=== PATIENT | male | born 1950 | race Caucasian/White ===

== ENCOUNTER 2017-09-30 10:04 | Inpatient (IN) | payer OTHER ==
[~2017-09-30 10:04] MED LIST: METHADONE 80 MG, METHADONE (DETOX) 30 MG PO SCH
[2017-09-30 10:55] VITALS: BMI 22.6
--- NOTE | 2017-09-30 11:18 | HP ---
CIWA Score - CIWA Score Nausea/Vomitin-Mild Nausea/No Vomiting Muscle Tremors: 4-Moderate,w/Arms Extend Anxiety: 4-Mod. Anxious/Guarded Agitation: 1-Slight > Activity Paroxysmal Sweats: 1-Minimal Palms Moist Orientation: 2-Disoriented Date<2 days Tacttile Disturbances: 0-None Auditory Disturbances: 1-Very Mild Visual Disturbances: 1-Very Mild Sensitivity Headache: 1-Very Mild CIWA-Ar Total Score: 16 Admission ROS S - HPI Chief Complaint: I want detox from the xanax, I'm tired Allergies/Adverse Reactions: Allergies Allergy/AdvReac Type Severity Reaction Status Date / Time No Known Allergies Allergy Verified 09/30/17 11:05 History of Present Illness: 67 yo gentleman here for detox from xanax - patient is on methadone program 110mg. He is being prescribed Klonopin by psych but admits to taking more than prescribed and then also buys xanax. No seizures but does have blackouts. Exam Limitations: Clinical Condition - Ebola screening Have you traveled outside of the country in the last 21 days: No (N) Have you had contact with anyone from an Ebola affected area: No Have you been sick,other than usual withdrawal symptoms: No Do you have a fever: No - Review of Systems Constitutional: Loss of Appetite, Changes in sleep, Other (slowed speech) EENT: reports: Blurred Vision, Dental Problems (no dentures), Difficulty Swallowing (sometimes) Respiratory: reports: No Symptoms reported Cardiac: reports: No Symptoms Reported GI: reports: Nausea, Poor Fluid Intake, Indigestion : reports: Urgency Musculoskeletal: reports: Back Pain Integumentary: reports: Dryness Neuro: reports: Headache, Tremors Endocrine: reports: No Symptoms Reported Hematology: reports: No Symptoms Reported Psychiatric: reports: Judgement Intact, Mood/Affect Appropiate, Anxious, Depressed (denies feeling suicidal) Other Systems: Reviewed and Negative Patient History - Patient Medical History Hx Anemia: No Hx Asthma: No Hx Chronic Obstructive Pulmonary Disease (COPD): No Hx Cancer: No Hx Cardiac Disorders: No Hx Congestive Heart Failure: No Hx Hypertension: No Hx Hypercholesterolemia: No Hx Pacemaker: No HX Cerebrovascular Accident: No Hx Seizures: No Hx Dementia: No Hx Diabetes: No Hx Gastrointestinal Disorders: No Hx Liver Disease: No Hx Genitourinary Disorders: No Hx Sexually Transmitted Disorders: No Hx Renal Disease (ESRD): Yes (incontinence) Hx Thyroid Disease: No Hx Human Immunodeficiency Virus (HIV): No Hx Hepatitis C: Yes (completed treatment 2016) Hx Depression: Yes (with PTSD) Hx Suicide Attempt: No Hx Bipolar Disorder: No Hx Schizophrenia: No ('I don't know') - Patient Surgical History Past Surgical History: Yes Hx Orthopedic Surgery: Yes (right leg tibial fracture repair 1967) - PPD History Previous Implant?: Yes Documented Results: Negative w/o proof Implanted On Prior R Admission?: No PPD to be Administered?: Yes - Reproductive History Patient is a Female of Child Bearing Age (11 -55 yrs old): No (male) - Smoking Cessation Smoking history: Current every day smoker Have you smoked in the past 12 months: Yes Aproximately how many cigarettes per day: 20 Initiated information on smoking cessation: Yes 'Breaking Loose' booklet given: 09/30/17 (give on floor) - Substance & Tx. History Hx Alcohol Use: No Hx Substance Use: Yes Substance Use Type: Tranquilizers Hx Substance Use Treatment: Yes (detox, methadone program) - Substances Abused Alprazolam (Xanax) Route: Oral Frequency: 3-6 times per week Amount used: 4mg Age of first use: 35 Date of Last Use: 09/29/17 Family Disease History - Family Disease History Family Disease History: Other: Father (, killed himself), Mother ( , murdered, used cocaine), Brother (doesn't know), Sister (two - one overdosed), Son (one murdered at age 26) Admission Physical Exam S - Vital Signs Vital Signs: Vital Signs - 24 hr 09/30/17 10:53 Temperature 97.8 F Pulse Rate 78 Respiratory 18 Rate Blood Pressure 146/68 - Physical General Appearance: Yes: Nourished, Appropriately Dressed, Disheveled, Moderate Distress, Thin, Anxious HEENTM: Yes: Hearing grossly Normal, Normocephalic, Normal Voice, Pharynx Normal (whitish coating on tongue), Thrush Respiratory: Yes: Normal Breath Sounds, No Respiratory Distress Neck: Yes: No masses,lesions,Nodules, Supple Breast: Yes: Breast Exam Deferred Cardiology: Yes: Regular Rhythm, Regular Rate Genitourinary: Yes: Incontinient Back: Yes: Normal Inspection Musculoskeletal: Yes: full range of Motion, Gait Steady, Back pain Extremities: Yes: Normal Inspection, Normal Range of Motion, Non-Tender Neurological: Yes: Alert, Normal Mood/Affect, Normal Response Integumentary: Yes: Normal Color, Warm Lymphatic: Yes: Within Normal Limits - Diagnostic (1) Sedative, hypnotic or anxiolytic dependence with withdrawal, uncomplicated Current Visit: Yes Status: Chronic (2) Methadone maintenance therapy patient Current Visit: Yes Status: Chronic (3) Nicotine dependence Current Visit: Yes Status: Chronic Qualifiers: Nicotine product type: cigarettes Substance use status: uncomplicated Qualified Code(s): F17.210 - Nicotine dependence, cigarettes, uncomplicated (4) Dysphagia Current Visit: Yes Status: Acute Qualifiers: Dysphagia type: oropharyngeal phase Qualified Code(s): R13.12 - Dysphagia, oropharyngeal phase (5) Oral arsenio Current Visit: Yes Status: Chronic Cleared for Admission [facility] - Detox or Rehab [facility] Level of Care: Medically Managed Detox Regimen/Protocol: Valium S Breath Alcohol Content Breath Alcohol Content: 0 Urine Drug Screen - Results Drug Screen Negative: No Urine Drug Screen Results: BZO-Benzodiazepines, MTD-Methadone
[2017-09-30] MEDS ORDERED: MAGNESIUM HYDROX 2400MG/30ML ORAL SUSPENSION 30 ML CUP PO PRN (11:31)
[2017-09-30] MEDS ORDERED: MAGNESIUM CITRATE 300 ML BOTTLE PO PRN (11:31)
[2017-09-30] MEDS ORDERED: ACETAMINOPHEN 325 MG TABLET (FP) PO PRN (11:31)
[2017-09-30] MEDS ORDERED: LOPERAMIDE HCL 2 MG CAPSULE PO PRN (11:31)
[2017-09-30] MEDS ORDERED: hydrOXYzine PAMOATE 50 MG CAPSULE (FP) PO PRN (11:31)
[2017-09-30] MEDS ORDERED: IBUPROFEN 400 MG TABLET (FP) PO PRN (11:31)
[2017-09-30] MEDS ORDERED: MAG HYDROX/AL HYDROX/SIMETH 30 ML UNIT-DOSE CUP PO PRN (11:31)
[2017-09-30] MEDS ORDERED: MENTHOL/PHENOL 1 EACH UD MM PRN (11:31)
[2017-09-30] MEDS ORDERED: P-EPHED 60MG/TRIPROLIDI 2.5MG TABLET PO PRN (11:31)
[2017-09-30] MEDS ORDERED: diazePAM 5 MG TABLET PO PRN (11:31)
[2017-09-30] MEDS ORDERED: guaiFENesin/D-METHORPHAN HB 10 ML UNIT-DOSE CUPS PO PRN (11:31)
[2017-09-30] MEDS: NICOTINE 21 MG/24 HOURS TOPICAL PATCH TD SCH (13:55)
[2017-09-30] MEDS: diazePAM 5 MG TABLET PO SCH ×2 (13:56→22:03)
[2017-09-30] MEDS ORDERED: diazePAM 5 MG TABLET PO ONE (14:00)
[2017-09-30] MEDS: CLOTRIMAZOLE 10 MG TROCHE (FP) PO SCH ×3 (14:50→22:03)
[2017-09-30 16:26] LABS: URINE APPEARANCE CLEAR; URINE BILIRUBIN NEGATIVE (NEGATIVE); URINE BLOOD NEGATIVE (NEGATIVE); URINE COLOR LTYELLOW; URINE GLUCOSE (UA) NEGATIVE (NEGATIVE); URINE KETONE NEGATIVE (NEGATIVE); URINE LEUK ESTERASE TRACE (NEGATIVE); URINE NITRITE NEGATIVE (NEGATIVE); URINE PROTEIN NEGATIVE (NEGATIVE)
[2017-09-30 16:55] LABS: URINE HYALINE CAST 2 /lpf
[2017-09-30] MEDS ORDERED: PERMETHRIN 5% TOPICAL CREAM 60 GM TUBE TP ONE (21:55)
[2017-09-30] MEDS: THIAMINE HCL 100 MG TABLET (FP) PO SCH (22:03)
--- NOTE | 2017-09-30 22:16 | PN ---
[facility] Progress Note Note: found the head lice on the hair occipital area,permethrin 5% topical cream ordered,patient will be in the room by himself nursing field supervisor seed production present on the unit.precaution taken
[2017-10-01] MEDS ORDERED: METHADONE HCL 40 MG DISPERSABLE TABLET ONE (04:43)
[2017-10-01] MEDS ORDERED: METHADONE HCL 10 MG TABLET ONE (04:44)
[2017-10-01] MEDS: diazePAM 5 MG TABLET PO SCH ×3 (06:37→23:04)
[2017-10-01] MEDS: CLOTRIMAZOLE 10 MG TROCHE (FP) PO SCH ×5 (06:37→23:34)
[2017-10-01] MEDS: METHADONE 80 MG, METHADONE 30 MG PO SCH (06:37)
[2017-10-01] MEDS ORDERED: METHADONE HCL 10 MG TABLET PO SCH (10:00)
[2017-10-01] MEDS: PRENATAL VITAMINS W/ FOLIC ACID TABLET (FP) PO SCH (10:10)
[2017-10-01] MEDS: NICOTINE 21 MG/24 HOURS TOPICAL PATCH TD SCH (10:11)
[2017-10-01 10:54] LABS: HEMATOCRIT 28.6 % (35.4-49); HEMOGLOBIN 8.6 GM/dL (11.7-16.9); MCH 20.9 pg (25.7-33.7); MEAN CELL VOLUME 69.6 fl (80-96); MEAN PLT VOLUME 8.4 fl (7.5-11.1); PLATELET COUNT 58 K/MM3 (134-434); RBC 4.11 M/mm3 (4.00-5.60); WHITE BLOOD COUNT 2.1 K/mm3 (4.0-10.0)
[2017-10-01 11:09] LABS: ALBUMIN 3.2 g/dl (3.4-5.0); ANION GAP 5 (8-16); BLOOD UREA NITROGEN 16 mg/dL (7-18); CALCIUM 8.5 mg/dL (8.5-10.1); CHLORIDE 101 mmol/L (98-107); CO2 33 mmol/L (21-32); GLUCOSE,RANDOM 113 mg/dL (74-106); POTASSIUM 4.4 mmol/L (3.5-5.1); SODIUM 139 mmol/L (136-145)
[2017-10-01 11:13] LABS: ALK PHOS 113 U/L (45-117); BILIRUBIN,TOTAL 0.4 mg/dL (0.2-1.0); CREATININE 0.8 mg/dL (0.7-1.3); SGOT/AST 19 U/L (15-37); SGPT/ALT 19 U/L (12-78); TOT PROT 7.8 g/dl (6.4-8.2)
--- NOTE | 2017-10-01 11:19 | EKG ---
Test Reason : Blood Pressure : / mmHG Vent. Rate : 070 BPM Atrial Rate : 070 BPM P-R Int : 172 ms QRS Dur : 088 ms QT Int : 432 ms P-R-T Axes : 054 038 056 degrees QTc Int : 466 ms NORMAL SINUS RHYTHM NORMAL ECG NO PREVIOUS ECGS AVAILABLE Confirmed by IRA HERNÁNDEZ MD ([id number]) on 10/01/2017 11:19:17 AM Referred By: Confirmed By:IRA HERNÁNDEZ MD
[2017-10-01 11:54] LABS: SICKLE CELL SCREEN NEGATIVE (NEGATIVE)
--- NOTE | 2017-10-01 15:35 | CONSULT ---
[facility] Psychiatric Consult - Data Date of interview: 10/01/17 Admission source: Self-referred Identifying data: Mr Pack is a 67 years old male, unemployed on SSI/SSD, homeless seeking detox treatment for xanax. Substance Abuse History: Reports history of xanax use. He started using xanax at age 35, consumes 4 mg 3-6 times daily. Last used on 09/29/17 Medical History: Significant for urinary incontinence. Patient is on methadone 110 mg/day. Smokes cigarettes 1ppd Psychiatric History: Reports history of treatment for anxiety since his was murdered in the 70's. Reports being diagnosed with PTSD and has atended several outpatient treatment. Told handbook writer that he now receives psychiatric outpatient services at a clinic in [place], [place] and he is prescribed Klonopin 1 mg po BID. According to pharmacy claims, he refilled script for Paxil 20 mg #30 & Klonopin 1 #60 on 09/08/17. He was asked about taking Paxil and did not knowit was prescribed to him. At present, reports feling depresed, anxious and sleeping poorly Physical/Sexual Abuse/Trauma History: Denies history of emotional. physical or sexual abuse. Claims that he did not witness his murder but was severely affected by that loss Additional Comment: Reports history of one previous arrests and charged with a felony. Mental Status Exam - Mental Status Exam Alert and Oriented to: Time, Place, Person Cognitive Function: Fair Patient Appearance: Well Groomed Mood: Depressed, Anxious Affect: Appropriate Patient Behavior: Cooperative Speech Pattern: Clear Voice Loudness: Normal Thought Process: Intact, Goal Oriented Thought Disorder: Not Present Hallucinations: Denies Suicidal Ideation: Denies Homicidal Ideation: Denies Insight/Judgement: Poor Sleep: Poorly Gait/Station: Normal Psychiatric Findings - Problem List ([place] 1, 2,3) (1) Substance-induced anxiety disorder Current Visit: Yes Status: Acute (2) PTSD (post-traumatic stress disorder) Current Visit: Yes Status: Chronic (3) Sedative, hypnotic or anxiolytic dependence with withdrawal, uncomplicated Current Visit: Yes Status: Acute (4) Opioid dependence on agonist therapy Current Visit: Yes Status: Chronic (5) Nicotine dependence Current Visit: Yes Status: Chronic Qualifiers: Nicotine product type: cigarettes Substance use status: uncomplicated Qualified Code(s): F17.210 - Nicotine dependence, cigarettes, uncomplicated - Initial Treatment Plan Initial Treatment Plan: 1) Start Ambien 10 mg po HS prn for insomnia. 2) Continue inpatient detoxification
[2017-10-01] MEDS ORDERED: ZOLPIDEM TARTRATE 10 MG TABLET (PARK CARE ONLY) PO PRN (15:42)
--- NOTE | 2017-10-01 15:59 | PN ---
[facility] CIWA - CIWA Score Nausea/Vomitin-No Nausea/No Vomiting Muscle Tremors: 4-Moderate,w/Arms Extend Anxiety: 4-Mod. Anxious/Guarded Agitation: 4-Moderately Restless Paroxysmal Sweats: 1-Minimal Palms Moist Orientation: 0-Oriented Tacttile Disturbances: 0-None Auditory Disturbances: 0-None Visual Disturbances: 0-None Headache: 0-None Present CIWA-Ar Total Score: 13 [facility] Progress Note (SOAP) Subjective: anxiety tremor sweat restlessness Objective: 10/01/17 16:00 Vital Signs Temperature 97.9 F 10/01/17 14:43 Pulse Rate 78 10/01/17 14:43 Respiratory Rate 18 10/01/17 14:43 Blood Pressure 110/74 10/01/17 14:43 O2 Sat by Pulse Oximetry (%) Laboratory Last Values WBC 2.1 K/mm3 (4.0-10.0) L 10/01/17 08:00 RBC 4.11 M/mm3 (4.00-5.60) 10/01/17 08:00 Hgb 8.6 GM/dL (11.7-16.9) L 10/01/17 08:00 Hct 28.6 % (35.4-49) L 10/01/17 08:00 MCV 69.6 fl (80-96) L 10/01/17 08:00 MCH 20.9 pg (25.7-33.7) L 10/01/17 08:00 MCHC 30.0 g/dl (32.0-35.9) L 10/01/17 08:00 RDW 20.0 % (11.9-15.9) H 10/01/17 08:00 Plt Count 58 K/MM3 (134-434) L 10/01/17 08:00 MPV 8.4 fl (7.5-11.1) 10/01/17 08:00 Hypersegmented Neuts Cancelled 10/01/17 08:00 Hypochromia Cancelled 10/01/17 08:00 Toxic Granulation Cancelled 10/01/17 08:00 Dohle Bodies Cancelled 10/01/17 08:00 Polychromasia Cancelled 10/01/17 08:00 Poikilocytosis Cancelled 10/01/17 08:00 Basophilic Stippling Cancelled 10/01/17 08:00 Anisocytosis Cancelled 10/01/17 08:00 Microcytosis Cancelled 10/01/17 08:00 Macrocytosis Cancelled 10/01/17 08:00 Spherocytes Cancelled 10/01/17 08:00 Siderocytes Cancelled 10/01/17 08:00 Sickle Cells Cancelled 10/01/17 08:00 Target Cells Cancelled 10/01/17 08:00 Tear Drop Cells Cancelled 10/01/17 08:00 Ovalocytes Cancelled 10/01/17 08:00 Stomatocytes Cancelled 10/01/17 08:00 Helmet Cells Cancelled 10/01/17 08:00 [place] Bodies Cancelled 10/01/17 08:00 [place] Rings Cancelled 10/01/17 08:00 Srini Cells Cancelled 10/01/17 08:00 Acanthocytes (Spur) Cancelled 10/01/17 08:00 Rouleaux Cancelled 10/01/17 08:00 Fragmented RBCs Cancelled 10/01/17 08:00 Schistocytes Cancelled 10/01/17 08:00 Morphology Comment Cancelled 10/01/17 08:00 Sickle Cell Screen Negative (NEGATIVE) 10/01/17 08:00 Sodium 139 mmol/L (136-145) 10/01/17 08:00 Potassium 4.4 mmol/L (3.5-5.1) 10/01/17 08:00 Chloride 101 mmol/L (98-107) 10/01/17 08:00 Carbon Dioxide 33 mmol/L (21-32) H 10/01/17 08:00 Anion Gap 5 (8-16) L 10/01/17 08:00 BUN 16 mg/dL (7-18) 10/01/17 08:00 Creatinine 0.8 mg/dL (0.7-1.3) 10/01/17 08:00 Creat Clearance w eGFR > 60 (>60) 10/01/17 08:00 Random Glucose 113 mg/dL (74-106) H 10/01/17 08:00 Calcium 8.5 mg/dL (8.5-10.1) 10/01/17 08:00 Total Bilirubin 0.4 mg/dL (0.2-1.0) 10/01/17 08:00 AST 19 U/L (15-37) 10/01/17 08:00 ALT 19 U/L (12-78) 10/01/17 08:00 Alkaline Phosphatase 113 U/L (45-117) 10/01/17 08:00 Total Protein 7.8 g/dl (6.4-8.2) 10/01/17 08:00 Albumin 3.2 g/dl (3.4-5.0) L 10/01/17 08:00 Urine Color Ltyellow 09/30/17 16:00 Urine Appearance Clear 09/30/17 16:00 Urine pH 8.0 (5.0-8.0) 09/30/17 16:00 Ur Specific [place] 1.014 (1.001-1.035) 09/30/17 16:00 Urine Protein Negative (NEGATIVE) 09/30/17 16:00 Urine Glucose (UA) Negative (NEGATIVE) 09/30/17 16:00 Urine Ketones Negative (NEGATIVE) 09/30/17 16:00 Urine Blood Negative (NEGATIVE) 09/30/17 16:00 Urine Nitrite Negative (NEGATIVE) 09/30/17 16:00 Urine Bilirubin Negative (NEGATIVE) 09/30/17 16:00 Urine Urobilinogen 2.0 mg/dL (0.2-1.0) 09/30/17 16:00 Ur Leukocyte Esterase Trace (NEGATIVE) 09/30/17 16:00 Urine WBC (Auto) <1 /hpf (3-5) 09/30/17 16:00 Urine RBC (Auto) 6 /hpf (0-3) 09/30/17 16:00 Hyaline Casts 2 /lpf 09/30/17 16:00 RPR Titer Nonreactive (NONREACTIVE) 10/01/17 08:00 lab noted Assessment: 10/01/17 16:00 withdrawal sx Plan: continue detox
[2017-10-01] MEDS: THIAMINE HCL 100 MG TABLET (FP) PO SCH (23:04)
[2017-10-02] MEDS ORDERED: METHADONE HCL 10 MG TABLET ONE (04:53)
[2017-10-02] MEDS ORDERED: METHADONE HCL 40 MG DISPERSABLE TABLET ONE (04:53)
[2017-10-02] MEDS: METHADONE 80 MG, METHADONE 30 MG PO SCH (05:44)
[2017-10-02] MEDS: CLOTRIMAZOLE 10 MG TROCHE (FP) PO SCH ×5 (05:46→22:05)
--- NOTE | 2017-10-02 10:45 | PN ---
<YeimiTanesha - Last Filed: 10/02/17 10:40> [facility] CIWA - CIWA Score Nausea/Vomitin-Mild Nausea/No Vomiting Muscle Tremors: 3 Anxiety: 3 Agitation: 3 Paroxysmal Sweats: 3 Orientation: 1-Uncertain about Date Tacttile Disturbances: 0-None Auditory Disturbances: 1-Very Mild Visual Disturbances: 0-None Headache: 0-None Present CIWA-Ar Total Score: 15 [facility] Progress Note (SOAP) Subjective: shakes sweats sleep disturbance hearing voices Objective: 10/02/17 10:42 [address] ambulating some shakes Denies SI/HI Vital Signs Temperature 98.9 F 10/02/17 06:00 Pulse Rate 66 10/02/17 06:00 Respiratory Rate 18 10/02/17 06:00 Blood Pressure 132/61 10/02/17 06:00 O2 Sat by Pulse Oximetry (%) Laboratory Last Values WBC 2.1 K/mm3 (4.0-10.0) L 10/01/17 08:00 RBC 4.11 M/mm3 (4.00-5.60) 10/01/17 08:00 Hgb 8.6 GM/dL (11.7-16.9) L 10/01/17 08:00 Hct 28.6 % (35.4-49) L 10/01/17 08:00 MCV 69.6 fl (80-96) L 10/01/17 08:00 MCH 20.9 pg (25.7-33.7) L 10/01/17 08:00 MCHC 30.0 g/dl (32.0-35.9) L 10/01/17 08:00 RDW 20.0 % (11.9-15.9) H 10/01/17 08:00 Plt Count 58 K/MM3 (134-434) L 10/01/17 08:00 MPV 8.4 fl (7.5-11.1) 10/01/17 08:00 Hypersegmented Neuts Cancelled 10/01/17 08:00 Hypochromia Cancelled 10/01/17 08:00 Toxic Granulation Cancelled 10/01/17 08:00 Dohle Bodies Cancelled 10/01/17 08:00 Polychromasia Cancelled 10/01/17 08:00 Poikilocytosis Cancelled 10/01/17 08:00 Basophilic Stippling Cancelled 10/01/17 08:00 Anisocytosis Cancelled 10/01/17 08:00 Microcytosis Cancelled 10/01/17 08:00 Macrocytosis Cancelled 10/01/17 08:00 Spherocytes Cancelled 10/01/17 08:00 Siderocytes Cancelled 10/01/17 08:00 Sickle Cells Cancelled 10/01/17 08:00 Target Cells Cancelled 10/01/17 08:00 Tear Drop Cells Cancelled 10/01/17 08:00 Ovalocytes Cancelled 10/01/17 08:00 Stomatocytes Cancelled 10/01/17 08:00 Helmet Cells Cancelled 10/01/17 08:00 [place] Bodies Cancelled 10/01/17 08:00 [place] Rings Cancelled 10/01/17 08:00 Srini Cells Cancelled 10/01/17 08:00 Acanthocytes (Spur) Cancelled 10/01/17 08:00 Rouleaux Cancelled 10/01/17 08:00 Fragmented RBCs Cancelled 10/01/17 08:00 Schistocytes Cancelled 10/01/17 08:00 Morphology Comment Cancelled 10/01/17 08:00 Sickle Cell Screen Negative (NEGATIVE) 10/01/17 08:00 Sodium 139 mmol/L (136-145) 10/01/17 08:00 Potassium 4.4 mmol/L (3.5-5.1) 10/01/17 08:00 Chloride 101 mmol/L (98-107) 10/01/17 08:00 Carbon Dioxide 33 mmol/L (21-32) H 10/01/17 08:00 Anion Gap 5 (8-16) L 10/01/17 08:00 BUN 16 mg/dL (7-18) 10/01/17 08:00 Creatinine 0.8 mg/dL (0.7-1.3) 10/01/17 08:00 Creat Clearance w eGFR > 60 (>60) 10/01/17 08:00 Random Glucose 113 mg/dL (74-106) H 10/01/17 08:00 Calcium 8.5 mg/dL (8.5-10.1) 10/01/17 08:00 Total Bilirubin 0.4 mg/dL (0.2-1.0) 10/01/17 08:00 AST 19 U/L (15-37) 10/01/17 08:00 ALT 19 U/L (12-78) 10/01/17 08:00 Alkaline Phosphatase 113 U/L (45-117) 10/01/17 08:00 Total Protein 7.8 g/dl (6.4-8.2) 10/01/17 08:00 Albumin 3.2 g/dl (3.4-5.0) L 10/01/17 08:00 Urine Color Ltyellow 09/30/17 16:00 Urine Appearance Clear 09/30/17 16:00 Urine pH 8.0 (5.0-8.0) 09/30/17 16:00 Ur Specific [place] 1.014 (1.001-1.035) 09/30/17 16:00 Urine Protein Negative (NEGATIVE) 09/30/17 16:00 Urine Glucose (UA) Negative (NEGATIVE) 09/30/17 16:00 Urine Ketones Negative (NEGATIVE) 09/30/17 16:00 Urine Blood Negative (NEGATIVE) 09/30/17 16:00 Urine Nitrite Negative (NEGATIVE) 09/30/17 16:00 Urine Bilirubin Negative (NEGATIVE) 09/30/17 16:00 Urine Urobilinogen 2.0 mg/dL (0.2-1.0) 09/30/17 16:00 Ur Leukocyte Esterase Trace (NEGATIVE) 09/30/17 16:00 Urine WBC (Auto) <1 /hpf (3-5) 09/30/17 16:00 Urine RBC (Auto) 6 /hpf (0-3) 09/30/17 16:00 Hyaline Casts 2 /lpf 09/30/17 16:00 RPR Titer Nonreactive (NONREACTIVE) 10/01/17 08:00 labs noted Assessment: 10/02/17 10:43 withdrawal sx Anemia Plan: continue detox Fe supplements <Kishore Ledesma - Last Filed: 10/02/17 12:50> B[facility] Progress Note (SOAP) Assessment: 10/02/17 12:49 withdrawal sx - cont detox, fluids, encourage ambulation, prn medications for tremors, nursing advised voices - psych eval
[2017-10-02] MEDS: PRENATAL VITAMINS W/ FOLIC ACID TABLET (FP) PO SCH (11:06)
[2017-10-02] MEDS: diazePAM 5 MG TABLET PO SCH ×2 (11:06→22:05)
[2017-10-02] MEDS: NICOTINE 21 MG/24 HOURS TOPICAL PATCH TD SCH (11:07)
[2017-10-02] MEDS: FERROUS SO4 325 MG TABLET (FP) PO SCH ×2 (12:30→18:47)
[2017-10-02] MEDS: THIAMINE HCL 100 MG TABLET (FP) PO SCH (22:06)
[2017-10-03] MEDS ORDERED: METHADONE HCL 40 MG DISPERSABLE TABLET ONE (03:43)
[2017-10-03] MEDS ORDERED: METHADONE HCL 10 MG TABLET ONE (03:43)
[2017-10-03] MEDS: METHADONE 80 MG, METHADONE 30 MG PO SCH (05:39)
[2017-10-03] MEDS: CLOTRIMAZOLE 10 MG TROCHE (FP) PO SCH ×5 (05:41→22:35)
[2017-10-03] MEDS: FERROUS SO4 325 MG TABLET (FP) PO SCH ×3 (08:59→17:38)
[2017-10-03 09:46] LABS: BASO % 0.3 % (0-2.0); EOS % 1.7 % (0-4.5); HEMATOCRIT 26.4 % (35.4-49); HEMOGLOBIN 7.9 GM/dL (11.7-16.9); LYMPH % 19.6 % (8-40); MCH 20.9 pg (25.7-33.7); MEAN CELL VOLUME 69.8 fl (80-96); MEAN PLT VOLUME 8.3 fl (7.5-11.1); MONO % 10.1 % (3.8-10.2); NEUT % 68.3 % (42.8-82.8); PLATELET COUNT 57 K/MM3 (134-434); RBC 3.78 M/mm3 (4.00-5.60); RDW 19.5 % (11.9-15.9); WHITE BLOOD COUNT 2.1 K/mm3 (4.0-10.0)
[2017-10-03] MEDS: diazePAM 5 MG TABLET PO SCH ×2 (10:11→22:35)
[2017-10-03] MEDS: PRENATAL VITAMINS W/ FOLIC ACID TABLET (FP) PO SCH (10:11)
[2017-10-03] MEDS: NICOTINE 21 MG/24 HOURS TOPICAL PATCH TD SCH (10:12)
--- NOTE | 2017-10-03 11:56 | PN ---
S Progress Note (SOAP) Subjective: alert oriented x 2 tolerates food and fluid well no sweat less tremor calm Objective: 10/03/17 11:55 Vital Signs Temperature 96.6 F L 10/03/17 10:26 Pulse Rate 82 10/03/17 10:26 Respiratory Rate 18 10/03/17 10:26 Blood Pressure 146/75 10/03/17 10:26 O2 Sat by Pulse Oximetry (%) Laboratory Last Values WBC 2.1 K/mm3 (4.0-10.0) L 10/03/17 06:00 RBC 3.78 M/mm3 (4.00-5.60) L 10/03/17 06:00 Hgb 7.9 GM/dL (11.7-16.9) L 10/03/17 06:00 Hct 26.4 % (35.4-49) L 10/03/17 06:00 MCV 69.8 fl (80-96) L 10/03/17 06:00 MCH 20.9 pg (25.7-33.7) L 10/03/17 06:00 MCHC 30.0 g/dl (32.0-35.9) L 10/03/17 06:00 RDW 19.5 % (11.9-15.9) H 10/03/17 06:00 Plt Count 57 K/MM3 (134-434) L 10/03/17 06:00 MPV 8.3 fl (7.5-11.1) 10/03/17 06:00 Neutrophils % 68.3 % (42.8-82.8) 10/03/17 06:00 Lymphocytes % 19.6 % (8-40) 10/03/17 06:00 Monocytes % 10.1 % (3.8-10.2) 10/03/17 06:00 Eosinophils % 1.7 % (0-4.5) 10/03/17 06:00 Basophils % 0.3 % (0-2.0) 10/03/17 06:00 Hypersegmented Neuts Cancelled 10/01/17 08:00 Hypochromia Cancelled 10/01/17 08:00 Toxic Granulation Cancelled 10/01/17 08:00 Dohle Bodies Cancelled 10/01/17 08:00 Polychromasia Cancelled 10/01/17 08:00 Poikilocytosis Cancelled 10/01/17 08:00 Basophilic Stippling Cancelled 10/01/17 08:00 Anisocytosis Cancelled 10/01/17 08:00 Microcytosis Cancelled 10/01/17 08:00 Macrocytosis Cancelled 10/01/17 08:00 Spherocytes Cancelled 10/01/17 08:00 Siderocytes Cancelled 10/01/17 08:00 Sickle Cells Cancelled 10/01/17 08:00 Target Cells Cancelled 10/01/17 08:00 Tear Drop Cells Cancelled 10/01/17 08:00 Ovalocytes Cancelled 10/01/17 08:00 Stomatocytes Cancelled 10/01/17 08:00 Helmet Cells Cancelled 10/01/17 08:00 [place] Bodies Cancelled 10/01/17 08:00 [place] Rings Cancelled 10/01/17 08:00 Srini Cells Cancelled 10/01/17 08:00 Acanthocytes (Spur) Cancelled 10/01/17 08:00 Rouleaux Cancelled 10/01/17 08:00 Fragmented RBCs Cancelled 10/01/17 08:00 Schistocytes Cancelled 10/01/17 08:00 Morphology Comment Cancelled 10/01/17 08:00 Sickle Cell Screen Negative (NEGATIVE) 10/01/17 08:00 Sodium 139 mmol/L (136-145) 10/01/17 08:00 Potassium 4.4 mmol/L (3.5-5.1) 10/01/17 08:00 Chloride 101 mmol/L (98-107) 10/01/17 08:00 Carbon Dioxide 33 mmol/L (21-32) H 10/01/17 08:00 Anion Gap 5 (8-16) L 10/01/17 08:00 BUN 16 mg/dL (7-18) 10/01/17 08:00 Creatinine 0.8 mg/dL (0.7-1.3) 10/01/17 08:00 Creat Clearance w eGFR > 60 (>60) 10/01/17 08:00 Random Glucose 113 mg/dL (74-106) H 10/01/17 08:00 Calcium 8.5 mg/dL (8.5-10.1) 10/01/17 08:00 Total Bilirubin 0.4 mg/dL (0.2-1.0) 10/01/17 08:00 AST 19 U/L (15-37) 10/01/17 08:00 ALT 19 U/L (12-78) 10/01/17 08:00 Alkaline Phosphatase 113 U/L (45-117) 10/01/17 08:00 Total Protein 7.8 g/dl (6.4-8.2) 10/01/17 08:00 Albumin 3.2 g/dl (3.4-5.0) L 10/01/17 08:00 Urine Color Ltyellow 09/30/17 16:00 Urine Appearance Clear 09/30/17 16:00 Urine pH 8.0 (5.0-8.0) 09/30/17 16:00 Ur Specific [place] 1.014 (1.001-1.035) 09/30/17 16:00 Urine Protein Negative (NEGATIVE) 09/30/17 16:00 Urine Glucose (UA) Negative (NEGATIVE) 09/30/17 16:00 Urine Ketones Negative (NEGATIVE) 09/30/17 16:00 Urine Blood Negative (NEGATIVE) 09/30/17 16:00 Urine Nitrite Negative (NEGATIVE) 09/30/17 16:00 Urine Bilirubin Negative (NEGATIVE) 09/30/17 16:00 Urine Urobilinogen 2.0 mg/dL (0.2-1.0) 09/30/17 16:00 Ur Leukocyte Esterase Trace (NEGATIVE) 09/30/17 16:00 Urine WBC (Auto) <1 /hpf (3-5) 09/30/17 16:00 Urine RBC (Auto) 6 /hpf (0-3) 09/30/17 16:00 Hyaline Casts 2 /lpf 09/30/17 16:00 RPR Titer Nonreactive (NONREACTIVE) 10/01/17 08:00 lab noted Assessment: 10/03/17 11:55 mild withdrawal sx Plan: medically supervised detox
--- NOTE | 2017-10-03 12:20 | PN ---
Psychiatric Progress Note Vital Signs: Vital Signs Period Temp Pulse Resp BP Sys/[place] Pulse Ox Last 24 Hr 96.6 F-98.5 F 69-82 18-20 111-146/62-78 Date of Session: 10/03/17 Chief Complaint:: "I want to know what's going on." HPI: Pt is a 67 year old, homeless man seeking detox from [facility]. ROS: Unremarkable. Current Medications: Active Medications Generic Name Dose Route Start Last Admin Trade Name Freq PRN Reason Stop Dose Admin Acetaminophen 650 mg 09/30/17 11:31 Tylenol - PO Q4H PRN FEVER Al Hydroxide/Mg Hydroxide 30 ml 09/30/17 11:31 Mylanta Oral Suspension - PO Q6H PRN DYSPEPSIA Clotrimazole 10 mg 09/30/17 14:00 10/03/17 10:11 Mycelex Andres's - PO 10 mg 5XD DAVID Administration Diazepam 5 mg 10/02/17 10:00 10/03/17 10:11 Valium - PO 10/03/17 22:01 5 mg BID DAVID Administration Diazepam 5 mg 10/04/17 10:00 Valium - PO 10/04/17 10:01 DAILY DAVID Eucalyptus/Menthol/Phenol/Sorbitol 1 each 09/30/17 11:31 Cepastat Lozenge - MM Q4H PRN SORE THROAT Ferrous Sulfate 325 mg 10/02/17 12:00 10/03/17 08:59 Feosol - PO 325 mg TIDCM DAVID Administration Guaifenesin 10 ml 09/30/17 11:31 Robitussin Dm - PO Q6H PRN COUGH Hydroxyzine Pamoate 50 mg 09/30/17 11:31 Vistaril - PO Q4H PRN AGITATION Ibuprofen 400 mg 09/30/17 11:31 Motrin - PO Q6H PRN PAIN LEVEL 4-6 Loperamide HCl 4 mg 09/30/17 11:31 Imodium - PO Q6H PRN DIARRHEA Magnesium Citrate 300 ml 09/30/17 11:31 Citroma - PO Q48H PRN CONSTIPATION Magnesium Hydroxide 30 ml 09/30/17 11:31 Milk Of Magnesia - PO DAILY PRN CONSTIPATION Methadone HCl 80 mg/ Methadone 110 mg 10/01/17 06:00 02/20/18 05:39 HCl 30 mg PO 110 mg DAILY@0600 DAVID Administration Nicotine 21 mg 09/30/17 11:45 10/03/17 10:12 Nicoderm Patch - TD 21 mg DAILY DAVID Administration Multivit/Folic Acid/Iron 1 tab 10/01/17 10:00 10/03/17 10:11 Vitamins (Sjr) - PO 1 tab DAILY DAVID Administration Pseudoephedrine/Triprolidine 1 combo 09/30/17 11:31 Actifed - PO TID PRN NASAL CONGESTION Thiamine HCl 100 mg 09/30/17 22:00 10/02/17 22:06 Vitamin B1 - PO 100 mg HS DAVID Administration Zolpidem Tartrate 10 mg 10/01/17 15:42 Ambien - PO HS PRN INSOMNIA Medication(s) Change(s): No. Current Side Effect: No Lab tests ordered: No Lab tests reviewed: Yes Provider note:: Backend Developer met with patient concerning psychiatric reconsultation. Pt. asking for information on his medication and his discharge date. Pt. educated on benefits and side effects (sleep walking) of ambien. Pt. reports favorable effect from taking ambien. Pt. recommended to speak to counselor concerning discharge and rehab placement after detox is complete. Pt. satisified and receptive to feedback. Total face to face time:: 15 Mental Status Exam - Mental Status Exam Alert and Oriented to: Time, Place, Person Cognitive Function: Good Patient Appearance: Well Groomed Mood: Hopeful Affect: Appropriate Patient Behavior: Appropriate, Cooperative Speech Pattern: Clear, Appropriate Voice Loudness: Normal Thought Process: Goal Oriented Thought Disorder: Not Present Hallucinations: Denies Suicidal Ideation: Denies Homicidal Ideation: Denies Insight/Judgement: Fair Sleep: Fair Appetite: Good Muscle strength/Tone: Normal Gait/Station: Normal Psychiatric Treatment Plan - Problem List (1) Sedative, hypnotic or anxiolytic dependence with withdrawal, uncomplicated Current Visit: Yes (2) Insomnia Current Visit: Yes (3) Methadone maintenance therapy patient Current Visit: Yes (4) Nicotine dependence Current Visit: Yes Qualifiers: Nicotine product type: cigarettes Substance use status: uncomplicated Qualified Code(s): F17.210 - Nicotine dependence, cigarettes, uncomplicated
[2017-10-03] MEDS: THIAMINE HCL 100 MG TABLET (FP) PO SCH (22:36)
[2017-10-04] MEDS ORDERED: METHADONE HCL 10 MG TABLET ONE (04:15)
[2017-10-04] MEDS ORDERED: METHADONE HCL 40 MG DISPERSABLE TABLET ONE (04:15)
[2017-10-04] MEDS: CLOTRIMAZOLE 10 MG TROCHE (FP) PO SCH (05:38)
[2017-10-04] MEDS: METHADONE 80 MG, METHADONE 30 MG PO SCH (05:38)
[2017-10-04] MEDS: FERROUS SO4 325 MG TABLET (FP) PO SCH (07:19)
--- NOTE | 2017-10-04 08:31 | DS ---
[facility] Detox Discharge Summary Admission Date: 09/30/17 Discharge Date: 10/04/17 - History Present History: Sedative Dependence, MMTP Additional Comments: patient with micorcytic anemia and dehydration on admission, needs to follow up with PCP for medical work up of anemia Pertinent Past History: anxiety, insomnia, depression and ptsd, nicotine dependence - Physical Exam Results Vital Signs: Vital Signs Temperature 96.6 F L 10/04/17 06:00 Pulse Rate 76 10/04/17 06:00 Respiratory Rate 18 10/04/17 06:00 Blood Pressure 131/58 10/04/17 06:00 O2 Sat by Pulse Oximetry (%) Laboratory Tests 09/30/17 10/01/17 10/01/17 16:00 08:00 08:00 WBC 2.1 L RBC 4.11 Hgb 8.6 L Hct 28.6 L MCV 69.6 L MCH 20.9 L MCHC 30.0 L RDW 20.0 H Plt Count 58 L MPV 8.4 Neutrophils % Lymphocytes % Monocytes % Eosinophils % Basophils % Hypersegmented Neuts Cancelled Hypochromia Cancelled Toxic Granulation Cancelled Dohle Bodies Cancelled Polychromasia Cancelled Poikilocytosis Cancelled Basophilic Stippling Cancelled Anisocytosis Cancelled Microcytosis Cancelled Macrocytosis Cancelled Spherocytes Cancelled Siderocytes Cancelled Sickle Cells Cancelled Target Cells Cancelled Tear Drop Cells Cancelled Ovalocytes Cancelled Stomatocytes Cancelled Helmet Cells Cancelled Merlos-Two Strike Bodies Cancelled [place] Rings Cancelled [place] Cells Cancelled Acanthocytes (Spur) Cancelled Rouleaux Cancelled Fragmented RBCs Cancelled Schistocytes Cancelled Morphology Comment Cancelled Sickle Cell Screen Negative Sodium 139 Potassium 4.4 Chloride 101 Carbon Dioxide 33 H Anion Gap 5 L BUN 16 Creatinine 0.8 Creat Clearance w eGFR > 60 Random Glucose 113 H Calcium 8.5 Total Bilirubin 0.4 AST 19 ALT 19 Alkaline Phosphatase 113 Total Protein 7.8 Albumin 3.2 L Urine Color Ltyellow Urine Appearance Clear Urine pH 8.0 Ur Specific [place] 1.014 Urine Protein Negative Urine Glucose (UA) Negative Urine Ketones Negative Urine Blood Negative Urine Nitrite Negative Urine Bilirubin Negative Urine Urobilinogen 2.0 Ur Leukocyte Esterase Trace Urine WBC (Auto) <1 Urine RBC (Auto) 6 Hyaline Casts 2 RPR Titer 10/01/17 10/03/1718 08:00 06:00 06:00 WBC 2.1 L RBC 3.78 L Hgb 7.9 L Hct 26.4 L MCV 69.8 L MCH 20.9 L MCHC 30.0 L RDW 19.5 H Plt Count 57 L MPV 8.3 Neutrophils % 68.3 Lymphocytes % 19.6 Monocytes % 10.1 Eosinophils % 1.7 Basophils % 0.3 Hypersegmented Neuts Hypochromia Toxic Granulation Dohle Bodies Polychromasia Poikilocytosis Basophilic Stippling Anisocytosis Microcytosis Macrocytosis Spherocytes Siderocytes Sickle Cells Target Cells Tear Drop Cells Ovalocytes Stomatocytes Helmet Cells Merlos-Two Strike Bodies [place] Rings [place] Cells Acanthocytes (Spur) Rouleaux Fragmented RBCs Schistocytes Morphology Comment Sickle Cell Screen Negative Sodium Potassium Chloride Carbon Dioxide Anion Gap BUN Creatinine Creat Clearance w eGFR Random Glucose Calcium Total Bilirubin AST ALT Alkaline Phosphatase Total Protein Albumin Urine Color Urine Appearance Urine pH Ur Specific [place] Urine Protein Urine Glucose (UA) Urine Ketones Urine Blood Urine Nitrite Urine Bilirubin Urine Urobilinogen Ur Leukocyte Esterase Urine WBC (Auto) Urine RBC (Auto) Hyaline Casts RPR Titer Nonreactive microcytic anemia Pertinent Admission Physical Exam Findings: withdrawawl sx - Treatment Hospital Course: Detox Protocol Followed, Detoxed Safely, Responded well, Discharged Condition Good, Rehab Referral Accepted Patient has Accepted a Rehab Referral to: Yes - Medication Discharge Medications: Ambulatory Orders Methadone [Dolophine -] 110 mg PO DAILY 09/30/17 - Diagnosis (1) Sedative, hypnotic or anxiolytic dependence with withdrawal, uncomplicated Current Visit: Yes Status: Acute (2) Substance-induced anxiety disorder Current Visit: Yes Status: Acute (3) Nicotine dependence Current Visit: Yes Status: Chronic Qualifiers: Nicotine product type: cigarettes Substance use status: uncomplicated Qualified Code(s): F17.210 - Nicotine dependence, cigarettes, uncomplicated (4) Opioid dependence on agonist therapy Current Visit: Yes Status: Chronic (5) PTSD (post-traumatic stress disorder) Current Visit: Yes Status: Chronic (6) Microcytic anemia Current Visit: Yes Status: Acute - AMA Did Patient Leave Against Medical Advice: No
[2017-10-04] MEDS: PRENATAL VITAMINS W/ FOLIC ACID TABLET (FP) PO SCH (09:44)
[2017-10-04] MEDS ORDERED: diazePAM 5 MG TABLET PO SCH (10:00)
[2017-10-04 10:30] VITALS: BP 153/74; PULSE 83; TEMP 98.2
== END 2017-10-04 10:32 | disposition home or self-care (01) | DRG 897 ==
LOC: YASAS 10:04 → Y6N 12:51
PROVIDERS: ADMIT Internal Medicine; ATTEND Internal Medicine
PROC: HZ2ZZZZ Detoxification Services for Substance Abuse Treatment (ICD-10-PCS; principal; 2017-09-30)
DX: F11.20 Opioid dependence, uncomplicated (principal); F13.230 Sedative, hypnotic or anxiolytic dependence with withdrawal, uncomplicated; F19.280 Other psychoactive substance dependence with psychoactive substance-induced anxiety disorder; B37.0 Candidal stomatitis; F17.210 Nicotine dependence, cigarettes, uncomplicated; F43.10 Post-traumatic stress disorder, unspecified; B18.2 Chronic viral hepatitis C; D50.9 Iron deficiency anemia, unspecified; R13.12 Dysphagia, oropharyngeal phase; Z59.0 Homelessness
CPT/HCPCS: 36415; 80053; 81003; 81015; 85025; 85027; 85660; 86593; 93005; 93010

== ENCOUNTER 2018-05-23 13:37 | Inpatient (IN) | payer OTHER ==
[2018-05-23 15:47] VITALS: BMI 21.6
--- NOTE | 2018-05-23 16:42 | HP ---
CIWA Score - CIWA Score Nausea/Vomitin Muscle Tremors: 3 Anxiety: 4-Mod. Anxious/Guarded Agitation: 1-Slight > Activity Paroxysmal Sweats: 2 Orientation: 1-Uncertain about Date Tacttile Disturbances: 3-Moderate Itch/Numb/Burn Auditory Disturbances: 0-None Visual Disturbances: 0-None Headache: 0-None Present CIWA-Ar Total Score: 16 Admission ROS S - HPI Chief Complaint: SEDATIVE/ANXIOLYTIC WITHDRAWAL SYMPTOMS Allergies/Adverse Reactions: Allergies Allergy/AdvReac Type Severity Reaction Status Date / Time No Known Allergies Allergy Verified 05/23/18 15:38 History of Present Illness: PATIENT PRESENTS WITH WITHDRAWAL FROM XANAX. PATIENT STARTED BUYING NON- PRESCRIBED XANAX AFTER KLONIPIN WAS D/C BY PSYCHIATRIST IN 01/2018 FOR PANIC ATTACKS. PATIENT TAKES 8MG OF XANAX AND 4MG OF KLONIPIN DAILY. PATIENT LAST DOSE OF BOTH MEDICATIONS WAS THIS MORNING. PATIENT DENIES H/O SEIZURES AND OVERDOSE. PATIENT HAS ATTEMPTED DETOX 3 TIMES THIS YEAR. LONGEST PERIOD OF SOBRIETY 4 DAYS. PATIENT HAS PMH HTN, HEP C TREATED IN 2017 ANXIETY AND MMTP. MTD 130MG DOSE PENDING RN VERIFICATION. DENIES SI/HI AND SUICIDE ATTEMPTS. WENT TO [facility] 05/22/18 FOR FALL. XRAY OF RIBS REPORT NEGATIVE. CXR NEGATIVE. Exam Limitations: Physical Impairment (AMBULATES WITH CANE) - Ebola screening Have you traveled outside of the country in the last 21 days: No Have you had contact with anyone from an Ebola affected area: No Have you been sick,other than usual withdrawal symptoms: No Do you have a fever: No - Review of Systems Constitutional: Night Sweats, Changes in sleep, Unexplained wgt Loss EENT: reports: No Symptoms Reported Respiratory: reports: Cough Cardiac: reports: No Symptoms Reported GI: reports: Nausea, Poor Appetite, Poor Fluid Intake, Abdominal cramping : reports: Urgency Musculoskeletal: reports: Back Pain, Joint Pain, Muscle Pain Integumentary: reports: Sweating Neuro: reports: Numbness, Tingling, Tremors, Unsteady Gait Endocrine: reports: Unexplained Weight Loss Hematology: reports: Anemia Psychiatric: reports: Anxious, Depressed Patient History - Patient Medical History Hx Anemia: Yes (possible GI bleed) Hx Asthma: No Hx Chronic Obstructive Pulmonary Disease (COPD): No Hx Cancer: No Hx Cardiac Disorders: No Hx Congestive Heart Failure: No Hx Hypertension: No Hx Hypercholesterolemia: No Hx Pacemaker: No HX Cerebrovascular Accident: No Hx Seizures: No Hx Dementia: No Hx Diabetes: No Hx Gastrointestinal Disorders: No Hx Liver Disease: No Hx Genitourinary Disorders: No Hx Sexually Transmitted Disorders: No Hx Renal Disease (ESRD): No Hx Thyroid Disease: No Hx Human Immunodeficiency Virus (HIV): No Hx Hepatitis C: Yes (completed treatment 2016) Hx Depression: Yes Hx Suicide Attempt: No Hx Bipolar Disorder: No Hx Schizophrenia: No - Patient Surgical History Past Surgical History: Yes Hx Neurologic Surgery: No Hx Cataract Extraction: No Hx Cardiac Surgery: No Hx Lung Surgery: No Hx Breast Surgery: No Hx Breast Biopsy: No Hx Abdominal Surgery: No Hx Appendectomy: No Hx Cholecystectomy: No Hx Genitourinary Surgery: No Hx Orthopedic Surgery: Yes (right leg tibial fracture repair 1967) Anesthesia Reaction: No - PPD History Previous Implant?: Yes Documented Results: Negative w/proof Date: 10/02/17 Results: 0 mm PPD to be Administered?: No - Smoking Cessation Smoking history: Current every day smoker Have you smoked in the past 12 months: Yes Aproximately how many cigarettes per day: 2 Hx Chewing Tobacco Use: No Initiated information on smoking cessation: No 'Breaking Loose' booklet given: 05/23/18 - Substance & Tx. History Hx Alcohol Use: No Hx Substance Use: No Substance Use Type: Prescribed, Tranquilizers Hx Substance Use Treatment: Yes - Substances Abused Xanax Route: Oral Frequency: 1-2 times per week Amount used: 4mg Age of first use: 16 Date of Last Use: 05/23/18 Methadone Route: Oral Frequency: Daily Amount used: 130mg Age of first use: 18 Date of Last Use: 05/23/18 Family Disease History - Family Disease History Family Disease History: Other: Father (, killed himself), Mother ( , murdered, used cocaine), Brother (doesn't know), Sister (two - one overdosed), Son (one murdered at age 26) Admission Physical Exam BHS - Vital Signs Vital Signs: Vital Signs - 24 hr 05/23/18 05/23/18 15:44 15:58 Temperature 97.4 F L 97.4 F L Pulse Rate 79 79 Respiratory 18 17 Rate Blood Pressure 150/77 150/77 - Physical General Appearance: Yes: Disheveled, Thin, Tremorous, Anxious HEENTM: Yes: EOMI, Hearing grossly Normal, Normal ENT Inspection, Normocephalic , MELANI, Pharynx Normal Respiratory: Yes: Chest Non-Tender, Lungs Clear, Normal Breath Sounds, No Respiratory Distress, No Accessory Muscle Use Neck: Yes: No masses,lesions,Nodules, Supple, Trachea in good position Breast: Yes: Breast Exam Deferred Cardiology: Yes: Regular Rhythm, Regular Rate, S1, S2 Abdominal: Yes: Normal Bowel Sounds, Non Tender, Soft Genitourinary: Yes: Incontinient Back: Yes: Muscle Spasm Musculoskeletal: Yes: Back pain, Muscle Pain, Other (UNSTEADY GAIT) Extremities: Yes: Non-Tender, Tremors Neurological: Yes: sander machine II-XII NML intact, Fully Oriented, Alert, Depressed Affect Integumentary: Yes: Normal Color, Warm, Moist Lymphatic: Yes: Within Normal Limits - Diagnostic (1) Depressed affect Current Visit: Yes Status: Suspected (2) Sedative, hypnotic or anxiolytic dependence with withdrawal, uncomplicated Current Visit: Yes Status: Acute (3) Methadone maintenance therapy patient Current Visit: Yes Status: Chronic Comment: dose not verified - 130mg, [facility] on [address], [facility], patient does not have bottle - was dosed today (4) Nicotine dependence Current Visit: Yes Status: Chronic Qualifiers: Nicotine product type: cigarettes Substance use status: in withdrawal Qualified Code(s): F17.213 - Nicotine dependence, cigarettes, with withdrawal Cleared for Admission [facility] - Detox or Rehab [facility] Level of Care: Medically Managed Detox Regimen/Protocol: Valium [facility] Breath Alcohol Content Breath Alcohol Content: 0 Urine Drug Screen - Results Drug Screen Negative: No Urine Drug Screen Results: BZO-Benzodiazepines, MTD-Methadone
[2018-05-23] MEDS ORDERED: IBUPROFEN 400 MG TABLET (FP) PO PRN (16:55)
[2018-05-23] MEDS ORDERED: P-EPHED 60MG/TRIPROLIDI 2.5MG TABLET PO PRN (16:55)
[2018-05-23] MEDS ORDERED: MAG HYDROX/AL HYDROX/SIMETH 30 ML UNIT-DOSE CUP PO PRN (16:55)
[2018-05-23] MEDS ORDERED: NICOTINE POLACRILEX 2 MG GUM BC PRN (16:55)
[2018-05-23] MEDS ORDERED: LOPERAMIDE HCL 2 MG CAPSULE PO PRN (16:55)
[2018-05-23] MEDS ORDERED: ACETAMINOPHEN 325 MG TABLET (FP) PO PRN (16:55)
[2018-05-23] MEDS ORDERED: MAGNESIUM CITRATE 300 ML BOTTLE PO PRN (16:55)
[2018-05-23] MEDS ORDERED: hydrOXYzine PAMOATE 50 MG CAPSULE (FP) PO PRN (16:55)
[2018-05-23] MEDS ORDERED: MAGNESIUM HYDROX 2400MG/30ML ORAL SUSPENSION 30 ML CUP PO PRN (16:55)
[2018-05-23] MEDS ORDERED: guaiFENesin/D-METHORPHAN HB 10 ML UNIT-DOSE CUPS PO PRN (16:55)
[2018-05-23] MEDS ORDERED: MENTHOL/PHENOL 1 EACH UD MM PRN (16:55)
[2018-05-23] MEDS ORDERED: diazePAM 5 MG TABLET PO PRN (16:59)
[2018-05-23] MEDS ORDERED: diazePAM 5 MG TABLET PO ONE (18:15)
[2018-05-23] MEDS ORDERED: MELATONIN 5 MG TABLETS PO PRN (22:00)
[2018-05-23 23:15] LABS: URINE APPEARANCE CLEAR; URINE BILIRUBIN NEGATIVE (<2.0 mg/dL); URINE COLOR YELLOW; URINE GLUCOSE (UA) NEGATIVE (NEGATIVE); URINE KETONE NEGATIVE (NEGATIVE); URINE LEUK ESTERASE TRACE (NEGATIVE); URINE NITRITE NEGATIVE (NEGATIVE); URINE PROTEIN NEGATIVE (NEGATIVE); URINE UROBILINOGEN NEGATIVE mg/dL (0.2-1.0)
[2018-05-23] MEDS: AMMONIUM LACTATE 12% LOTION 225 GM BOTTLE TP SCH (23:15)
[2018-05-23] MEDS: diazePAM 5 MG TABLET PO SCH (23:15)
[2018-05-23] MEDS: THIAMINE HCL 100 MG TABLET (FP) PO SCH (23:15)
[2018-05-24] MEDS: diazePAM 5 MG TABLET PO SCH ×3 (06:29→21:48)
--- NOTE | 2018-05-24 07:35 | CONSULT ---
[facility] Psychiatric Consult - Data Date of interview: 05/24/18 Admission source: [facility] Identifying data: This is 67 years old male, father of two, living alone , on SSD, ambulating with cane, with uncleat psychitric hospitalization history , with long history of Xanax, Opioids dependence, currently on MMTP, reports withdrawal symptoms and seeking detox. Substance Abuse History: - Smoking Cessation. Smoking history: Current every day smoker. Have you smoked in the past 12 months: Yes. Aproximately how many cigarettes per day: 2. Hx Chewing Tobacco Use: No. Initiated information on smoking cessation: No. 'Breaking Loose' booklet given: 05/23/18. - Substance & Tx. History. Hx Alcohol Use: No. Hx Substance Use: No. Substance Use Type: Prescribed, Tranquilizers. Hx Substance Use Treatment: Yes. - Substances Abused. Xanax. Route: Oral. Frequency: 1-2 times per week. Amount used: 4mg. Age of first use: 16. Date of Last Use: 05/23/18. Methadone. Route: Oral. Frequency: Daily. Amount used: 130mg. Age of first use: 18. Date of Last Use: 05/23/18 Medical History: Anemia history, Thrombocytopenia history, head trauma history, Gastric ulcer,. MMTP 130mg per day. Reports rigth tibial fracture on 1967, ambulates with cane Psychiatric History: Patient reports history of depression, reports unclear psychiatroic admission back on 1966, history of PTSD, denies history of suicidal , homicidal behavior, reports taking prior to admission;. Paxil 20mg poqd Physical/Sexual Abuse/Trauma History: Denies Additional Comment: Paxil 20mg poqd Mental Status Exam - Mental Status Exam Alert and Oriented to: Person Cognitive Function: Fair Patient Appearance: Unkempt Mood: Apprehensive Affect: Mood Congruent Patient Behavior: Sedated Speech Pattern: Delayed Voice Loudness: Mildly Soft/Quiet Thought Process: Goal Oriented Thought Disorder: Being Controlled Hallucinations: Denies Suicidal Ideation: Denies Homicidal Ideation: Denies Insight/Judgement: Fair Sleep: Difficulty falling asleep Appetite: Weight loss Muscle strength/Tone: Mild Hypotonicity Gait/Station: Deferred Additional Comments: Paxil 20mg poqd Psychiatric Findings - Problem List ([place] 1, 2,3) (1) Sedative, hypnotic or anxiolytic dependence with withdrawal, uncomplicated Current Visit: Yes Status: Acute (2) Methadone maintenance therapy patient Current Visit: Yes Status: Chronic Comment: dose not verified - 130mg, [facility] on [address], [facility], patient does not have bottle - was dosed today (3) Nicotine dependence Current Visit: Yes Status: Chronic Qualifiers: Nicotine product type: cigarettes Substance use status: in withdrawal Qualified Code(s): F17.213 - Nicotine dependence, cigarettes, with withdrawal (4) Opioid dependence on agonist therapy Current Visit: No Status: Acute (5) Substance induced mood disorder Current Visit: No Status: Acute (6) Substance-induced anxiety disorder Current Visit: No Status: Acute (7) Thrombocytopenia Current Visit: No Status: Acute (8) Hand trauma Current Visit: No Status: Chronic Qualifiers: Encounter type: subsequent encounter Laterality: left Qualified Code(s): S69.92XD - Unspecified injury of left wrist, hand and finger(s), subsequent encounter Comment: states he fell a few days ago - evaluated (9) History of gastric ulcer Current Visit: No Status: Chronic (10) Microcytic anemia Current Visit: No Status: Chronic (11) PTSD (post-traumatic stress disorder) Current Visit: No Status: Chronic Comment: As per records and self-report.
[2018-05-24] MEDS ORDERED: METHADONE HCL 10 MG TABLET PO ONE (09:11)
[2018-05-24] MEDS ORDERED: METHADONE 120 MG, METHADONE 10 MG PO ONE (09:35)
[2018-05-24] MEDS ORDERED: METHADONE HCL 40 MG DISPERSABLE TABLET ONE (09:45)
[2018-05-24] MEDS ORDERED: METHADONE HCL 10 MG TABLET ONE (09:46)
[2018-05-24 10:07] LABS: HEMATOCRIT 35.6 % (35.4-49); HEMOGLOBIN 10.8 GM/dL (11.7-16.9); MCH 23.7 pg (25.7-33.7); MCHC 30.3 g/dl (32.0-35.9); MEAN CELL VOLUME 78.1 fl (80-96); MEAN PLT VOLUME 7.4 fl (7.5-11.1); PLATELET COUNT 78 K/MM3 (134-434); RBC 4.56 M/mm3 (4.00-5.60); RDW 18.8 % (11.9-15.9); WHITE BLOOD COUNT 3.4 K/mm3 (4.0-10.0)
[2018-05-24 10:32] LABS: BLOOD UREA NITROGEN 13 mg/dL (7-18); CREATININE 0.7 mg/dL (0.55-1.3); GLUCOSE,RANDOM 73 mg/dL (74-106)
[2018-05-24 10:33] LABS: ALBUMIN 3.7 g/dl (3.4-5.0); ALK PHOS 110 U/L (45-117); ANION GAP 8 MMOL/L (8-16); BILIRUBIN,TOTAL 0.3 mg/dL (0.2-1); CHLORIDE 103 mmol/L (98-107); CO2 29 mmol/L (21-32); POTASSIUM 4.3 mmol/L (3.5-5.1); SGOT/AST 22 U/L (15-37); SGPT/ALT 20 U/L (13-61); SODIUM 140 mmol/L (136-145); TOT PROT 8.4 g/dl (6.4-8.2)
--- NOTE | 2018-05-24 11:02 | PN ---
S CIWA - CIWA Score Nausea/Vomitin-No Nausea/No Vomiting Muscle Tremors: 3 Anxiety: 5 Agitation: 3 Paroxysmal Sweats: 1-Minimal Palms Moist Orientation: 1-Uncertain about Date Tacttile Disturbances: 1-Very Mild Itch/Numbness Auditory Disturbances: 0-None Visual Disturbances: 0-None Headache: 0-None Present CIWA-Ar Total Score: 14 BHS Progress Note (SOAP) Subjective: anxiety restlessness irritable trouble sleep at night Objective: 05/24/18 11:00 Vital Signs Temperature 98.2 F 05/24/18 10:48 Pulse Rate 83 05/24/18 10:48 Respiratory Rate 17 05/24/18 10:48 Blood Pressure 123/83 05/24/18 10:48 O2 Sat by Pulse Oximetry (%) Laboratory Last Values WBC 3.4 K/mm3 (4.0-10.0) L 05/24/18 07:00 RBC 4.56 M/mm3 (4.00-5.60) 05/24/18 07:00 Hgb 10.8 GM/dL (11.7-16.9) L 05/24/18 07:00 Hct 35.6 % (35.4-49) D 05/24/18 07:00 MCV 78.1 fl (80-96) L 05/24/18 07:00 MCH 23.7 pg (25.7-33.7) L 05/24/18 07:00 MCHC 30.3 g/dl (32.0-35.9) L 05/24/18 07:00 RDW 18.8 % (11.9-15.9) H 05/24/18 07:00 Plt Count 78 K/MM3 (134-434) L D 05/24/18 07:00 MPV 7.4 fl (7.5-11.1) L 05/24/18 07:00 Sodium 140 mmol/L (136-145) 05/24/18 07:00 Potassium 4.3 mmol/L (3.5-5.1) 05/24/18 07:00 Chloride 103 mmol/L (98-107) 05/24/18 07:00 Carbon Dioxide 29 mmol/L (21-32) 05/24/18 07:00 Anion Gap 8 MMOL/L (8-16) 05/24/18 07:00 BUN 13 mg/dL (7-18) 05/24/18 07:00 Creatinine 0.7 mg/dL (0.55-1.3) 05/24/18 07:00 Creat Clearance w eGFR > 60 (>60) 05/24/18 07:00 Random Glucose 73 mg/dL (74-106) L 05/24/18 07:00 Calcium 9.0 mg/dL (8.5-10.1) 05/24/18 07:00 Total Bilirubin 0.3 mg/dL (0.2-1) 05/24/18 07:00 AST 22 U/L (15-37) 05/24/18 07:00 ALT 20 U/L (13-61) 05/24/18 07:00 Alkaline Phosphatase 110 U/L (45-117) 05/24/18 07:00 Total Protein 8.4 g/dl (6.4-8.2) H 05/24/18 07:00 Albumin 3.7 g/dl (3.4-5.0) 05/24/18 07:00 Urine Color Yellow 05/23/18 23:00 Urine Appearance Clear 05/23/18 23:00 Urine pH 5.0 (5.0-8.0) D 05/23/18 23:00 Ur Specific [place] 1.020 (1.010-1.035) 05/23/18 23:00 Urine Protein Negative (NEGATIVE) 05/23/18 23:00 Urine Glucose (UA) Negative (NEGATIVE) 05/23/18 23:00 Urine Ketones Negative (NEGATIVE) 05/23/18 23:00 Urine Blood 2+ (NEGATIVE) H 05/23/18 23:00 Urine Nitrite Negative (NEGATIVE) 05/23/18 23:00 Urine Bilirubin Negative (<2.0 mg/dL) 05/23/18 23:00 Urine Urobilinogen Negative mg/dL (0.2-1.0) 05/23/18 23:00 Ur Leukocyte Esterase Trace (NEGATIVE) 05/23/18 23:00 Urine WBC (Auto) 1 /hpf (3-5) 05/23/18 23:00 Urine RBC (Auto) 95 /hpf (0-3) 05/23/18 23:00 lab noted repeat ua Assessment: 05/24/18 11:01 withdrawal sx Plan: continue detox
[2018-05-24] MEDS: PRENATAL VITAMINS W/ FOLIC ACID TABLET (FP) PO SCH (11:04)
[2018-05-24] MEDS: PARoxetine HCL 20 MG TABLET (FP) PO SCH (11:04)
[2018-05-24] MEDS: AMMONIUM LACTATE 12% LOTION 225 GM BOTTLE TP SCH ×2 (12:47→21:48)
[2018-05-24 18:15] LABS: URINE APPEARANCE CLEAR; URINE BILIRUBIN NEGATIVE (<2.0 mg/dL); URINE COLOR YELLOW; URINE GLUCOSE (UA) NEGATIVE (NEGATIVE); URINE KETONE NEGATIVE (NEGATIVE); URINE LEUK ESTERASE TRACE (NEGATIVE); URINE NITRITE NEGATIVE (NEGATIVE); URINE PROTEIN NEGATIVE (NEGATIVE); URINE UROBILINOGEN NEGATIVE mg/dL (0.2-1.0)
[2018-05-24] MEDS: THIAMINE HCL 100 MG TABLET (FP) PO SCH (21:48)
[2018-05-25] MEDS ORDERED: METHADONE HCL 40 MG DISPERSABLE TABLET ONE (05:04)
[2018-05-25] MEDS ORDERED: METHADONE HCL 10 MG TABLET ONE (05:04)
[2018-05-25] MEDS ORDERED: METHADONE HCL 40 MG DISPERSABLE TABLET PO SCH (06:00)
[2018-05-25] MEDS: METHADONE 120 MG, METHADONE 10 MG PO SCH (06:23)
[2018-05-25] MEDS: AMMONIUM LACTATE 12% LOTION 225 GM BOTTLE TP SCH ×2 (10:21→22:53)
[2018-05-25] MEDS: PARoxetine HCL 20 MG TABLET (FP) PO SCH (10:21)
[2018-05-25] MEDS: PRENATAL VITAMINS W/ FOLIC ACID TABLET (FP) PO SCH (10:21)
[2018-05-25] MEDS: diazePAM 5 MG TABLET PO SCH ×2 (10:21→22:52)
--- NOTE | 2018-05-25 10:44 | PN ---
S CIWA - CIWA Score Nausea/Vomitin-Mild Nausea/No Vomiting Muscle Tremors: 2 Anxiety: 3 Agitation: 1-Slight > Activity Paroxysmal Sweats: No Perspiration Orientation: 0-Oriented Tacttile Disturbances: 0-None Auditory Disturbances: 0-None Visual Disturbances: 0-None Headache: 2-Mild CIWA-Ar Total Score: 9 BHS Progress Note (SOAP) Subjective: PATIENT C/O HEADACHE, SHAKES, ANXIETY AND RESTLESSNESS. Objective: 05/25/18 10:41 Laboratory Tests 05/23/18 05/24/18 05/24/18 23:00 07:00 07:00 WBC 3.4 L RBC 4.56 Hgb 10.8 L Hct 35.6 D MCV 78.1 L MCH 23.7 L MCHC 30.3 L RDW 18.8 H Plt Count 78 L D MPV 7.4 L Sodium 140 Potassium 4.3 Chloride 103 Carbon Dioxide 29 Anion Gap 8 BUN 13 Creatinine 0.7 Creat Clearance w eGFR > 60 Random Glucose 73 L Calcium 9.0 Total Bilirubin 0.3 AST 22 ALT 20 Alkaline Phosphatase 110 Total Protein 8.4 H Albumin 3.7 Urine Color Yellow Urine Appearance Clear Urine pH 5.0 D Ur Specific [place] 1.020 Urine Protein Negative Urine Glucose (UA) Negative Urine Ketones Negative Urine Blood 2+ H Urine Nitrite Negative Urine Bilirubin Negative Urine Urobilinogen Negative Ur Leukocyte Esterase Trace Urine WBC (Auto) 1 Urine RBC (Auto) 95 RPR Titer 05/24/18 05/24/18 07:00 14:15 WBC RBC Hgb Hct MCV MCH MCHC RDW Plt Count MPV Sodium Potassium Chloride Carbon Dioxide Anion Gap BUN Creatinine Creat Clearance w eGFR Random Glucose Calcium Total Bilirubin AST ALT Alkaline Phosphatase Total Protein Albumin Urine Color Yellow Urine Appearance Clear Urine pH 7.0 D Ur Specific [place] 1.016 Urine Protein Negative Urine Glucose (UA) Negative Urine Ketones Negative Urine Blood 2+ H Urine Nitrite Negative Urine Bilirubin Negative Urine Urobilinogen Negative Ur Leukocyte Esterase Trace Urine WBC (Auto) 13 Urine RBC (Auto) 114 RPR Titer Nonreactive SKIN WARM AND DRY CAR S1S2 RESP CTA BL GI SOFT, BS+, NT EXT MILD TREMORS +ANXIOUS AND RESTLESS Assessment: 05/25/18 10:42 HEMATURIA WITHDRAWAL SYNDROME Plan: CONTINUE DETOX ORDERED ENCOURAGE ORAL FLUIDS PATIENT INFORMED OF UA RESULTS AND ADVISED TO FOLLOW UP WITH PCP WITHIN ONE WEEK OF D/C CONTINUE TO MONITOR CLINICALLY
[2018-05-25] MEDS: THIAMINE HCL 100 MG TABLET (FP) PO SCH (22:53)
[2018-05-26] MEDS ORDERED: METHADONE HCL 10 MG TABLET ONE (05:24)
[2018-05-26] MEDS ORDERED: METHADONE HCL 40 MG DISPERSABLE TABLET ONE (05:24)
[2018-05-26] MEDS: METHADONE 120 MG, METHADONE 10 MG PO SCH (06:51)
[2018-05-26] MEDS: diazePAM 5 MG TABLET PO SCH ×2 (10:00→22:11)
[2018-05-26] MEDS: PARoxetine HCL 20 MG TABLET (FP) PO SCH (10:23)
[2018-05-26] MEDS: AMMONIUM LACTATE 12% LOTION 225 GM BOTTLE TP SCH ×2 (10:23→22:11)
[2018-05-26] MEDS: PRENATAL VITAMINS W/ FOLIC ACID TABLET (FP) PO SCH (10:23)
--- NOTE | 2018-05-26 10:38 | EKG ---
Test Reason : Blood Pressure : / mmHG Vent. Rate : 071 BPM Atrial Rate : 071 BPM P-R Int : 176 ms QRS Dur : 086 ms QT Int : 434 ms P-R-T Axes : 067 031 052 degrees QTc Int : 471 ms NORMAL SINUS RHYTHM NORMAL ECG WHEN COMPARED WITH ECG OF 20-APR-2018 16:08, NO SIGNIFICANT CHANGE WAS FOUND Confirmed by LELA MALIK MD ([id number]) on 05/26/2018 10:37:37 AM Referred By: Confirmed By:LELA MALIK MD
--- NOTE | 2018-05-26 13:21 | PN ---
[facility] Progress Note Note: Vital Signs Temperature 97.1 F L 05/26/18 10:16 Pulse Rate 77 05/26/18 10:16 Respiratory Rate 18 05/26/18 10:16 Blood Pressure 116/66 05/26/18 10:16 O2 Sat by Pulse Oximetry (%) Laboratory Last Values WBC 3.4 K/mm3 (4.0-10.0) L 05/24/18 07:00 RBC 4.56 M/mm3 (4.00-5.60) 05/24/18 07:00 Hgb 10.8 GM/dL (11.7-16.9) L 05/24/18 07:00 Hct 35.6 % (35.4-49) D 05/24/18 07:00 MCV 78.1 fl (80-96) L 05/24/18 07:00 MCH 23.7 pg (25.7-33.7) L 05/24/18 07:00 MCHC 30.3 g/dl (32.0-35.9) L 05/24/18 07:00 RDW 18.8 % (11.9-15.9) H 05/24/18 07:00 Plt Count 78 K/MM3 (134-434) L D 05/24/18 07:00 MPV 7.4 fl (7.5-11.1) L 05/24/18 07:00 Sodium 140 mmol/L (136-145) 05/24/18 07:00 Potassium 4.3 mmol/L (3.5-5.1) 05/24/18 07:00 Chloride 103 mmol/L (98-107) 05/24/18 07:00 Carbon Dioxide 29 mmol/L (21-32) 05/24/18 07:00 Anion Gap 8 MMOL/L (8-16) 05/24/18 07:00 BUN 13 mg/dL (7-18) 05/24/18 07:00 Creatinine 0.7 mg/dL (0.55-1.3) 05/24/18 07:00 Creat Clearance w eGFR > 60 (>60) 05/24/18 07:00 Random Glucose 73 mg/dL (74-106) L 05/24/18 07:00 Calcium 9.0 mg/dL (8.5-10.1) 05/24/18 07:00 Total Bilirubin 0.3 mg/dL (0.2-1) 05/24/18 07:00 AST 22 U/L (15-37) 05/24/18 07:00 ALT 20 U/L (13-61) 05/24/18 07:00 Alkaline Phosphatase 110 U/L (45-117) 05/24/18 07:00 Total Protein 8.4 g/dl (6.4-8.2) H 05/24/18 07:00 Albumin 3.7 g/dl (3.4-5.0) 05/24/18 07:00 Urine Color Yellow 05/24/18 14:15 Urine Appearance Clear 05/24/18 14:15 Urine pH 7.0 (5.0-8.0) D 05/24/18 14:15 Ur Specific [place] 1.016 (1.010-1.035) 05/24/18 14:15 Urine Protein Negative (NEGATIVE) 05/24/18 14:15 Urine Glucose (UA) Negative (NEGATIVE) 05/24/18 14:15 Urine Ketones Negative (NEGATIVE) 05/24/18 14:15 Urine Blood 2+ (NEGATIVE) H 05/24/18 14:15 Urine Nitrite Negative (NEGATIVE) 05/24/18 14:15 Urine Bilirubin Negative (<2.0 mg/dL) 05/24/18 14:15 Urine Urobilinogen Negative mg/dL (0.2-1.0) 05/24/18 14:15 Ur Leukocyte Esterase Trace (NEGATIVE) 05/24/18 14:15 Urine WBC (Auto) 13 /hpf (3-5) 05/24/18 14:15 Urine RBC (Auto) 114 /hpf (0-3) 05/24/18 14:15 RPR Titer Nonreactive (NONREACTIVE) 05/24/18 07:00 c/o of urinary incontinence (chronic), interrupted sleep Aox3 no distress no adventitious breath sounds ambulating in the unit withdrawal sx continue detox diapers as needed for incontinence patient to follow up with PCP upon discharge continue to monitor
[2018-05-26] MEDS: THIAMINE HCL 100 MG TABLET (FP) PO SCH (22:11)
[2018-05-27] MEDS ORDERED: METHADONE HCL 40 MG DISPERSABLE TABLET ONE (04:27)
[2018-05-27] MEDS ORDERED: METHADONE HCL 10 MG TABLET ONE (04:28)
[2018-05-27] MEDS: METHADONE 120 MG, METHADONE 10 MG PO SCH (07:12)
--- NOTE | 2018-05-27 09:05 | DS ---
[facility] Detox Discharge Summary Admission Date: 05/23/18 Discharge Date: 05/27/18 - History Present History: Sedative Dependence - Physical Exam Results Vital Signs: Vital Signs Temperature 97.7 F 05/27/18 07:41 Pulse Rate 69 05/27/18 07:41 Respiratory Rate 18 05/27/18 07:41 Blood Pressure 112/52 L 05/27/18 07:41 O2 Sat by Pulse Oximetry (%) - Treatment Hospital Course: Detox Protocol Followed, Detoxed Safely, Responded well, Discharged Condition Good, Rehab Referral Accepted - Medication Discharge Medications: Ambulatory Orders Methadone [Dolophine -] 130 mg PO DAILY@0600 05/24/18 Paroxetine HCl [Paxil -] 20 mg PO DAILY #30 tablet 05/24/18 - Diagnosis (1) Sedative, hypnotic or anxiolytic dependence with withdrawal, uncomplicated Current Visit: Yes Status: Acute (2) Methadone maintenance therapy patient Current Visit: Yes Status: Chronic (3) Nicotine dependence Current Visit: Yes Status: Acute Qualifiers: Nicotine product type: cigarettes Substance use status: in withdrawal Qualified Code(s): F17.213 - Nicotine dependence, cigarettes, with withdrawal - AMA Did Patient Leave Against Medical Advice: No
--- NOTE | 2018-05-27 09:56 | PN ---
S Progress Note (SOAP) Subjective: mild gi distress, no tremor less sweat anxiety Objective: 05/27/18 12:40 Vital Signs Temperature 97.5 F L 05/27/18 09:48 Pulse Rate 84 05/27/18 09:48 Respiratory Rate 16 05/27/18 09:48 Blood Pressure 127/72 05/27/18 09:48 O2 Sat by Pulse Oximetry (%) Laboratory Last Values WBC 3.4 K/mm3 (4.0-10.0) L 05/24/18 07:00 RBC 4.56 M/mm3 (4.00-5.60) 05/24/18 07:00 Hgb 10.8 GM/dL (11.7-16.9) L 05/24/18 07:00 Hct 35.6 % (35.4-49) D 05/24/18 07:00 MCV 78.1 fl (80-96) L 05/24/18 07:00 MCH 23.7 pg (25.7-33.7) L 05/24/18 07:00 MCHC 30.3 g/dl (32.0-35.9) L 05/24/18 07:00 RDW 18.8 % (11.9-15.9) H 05/24/18 07:00 Plt Count 78 K/MM3 (134-434) L D 05/24/18 07:00 MPV 7.4 fl (7.5-11.1) L 05/24/18 07:00 Sodium 140 mmol/L (136-145) 05/24/18 07:00 Potassium 4.3 mmol/L (3.5-5.1) 05/24/18 07:00 Chloride 103 mmol/L (98-107) 05/24/18 07:00 Carbon Dioxide 29 mmol/L (21-32) 05/24/18 07:00 Anion Gap 8 MMOL/L (8-16) 05/24/18 07:00 BUN 13 mg/dL (7-18) 05/24/18 07:00 Creatinine 0.7 mg/dL (0.55-1.3) 05/24/18 07:00 Creat Clearance w eGFR > 60 (>60) 05/24/18 07:00 Random Glucose 73 mg/dL (74-106) L 05/24/18 07:00 Calcium 9.0 mg/dL (8.5-10.1) 05/24/18 07:00 Total Bilirubin 0.3 mg/dL (0.2-1) 05/24/18 07:00 AST 22 U/L (15-37) 05/24/18 07:00 ALT 20 U/L (13-61) 05/24/18 07:00 Alkaline Phosphatase 110 U/L (45-117) 05/24/18 07:00 Total Protein 8.4 g/dl (6.4-8.2) H 05/24/18 07:00 Albumin 3.7 g/dl (3.4-5.0) 05/24/18 07:00 Urine Color Yellow 05/24/18 14:15 Urine Appearance Clear 05/24/18 14:15 Urine pH 7.0 (5.0-8.0) D 05/24/18 14:15 Ur Specific [place] 1.016 (1.010-1.035) 05/24/18 14:15 Urine Protein Negative (NEGATIVE) 05/24/18 14:15 Urine Glucose (UA) Negative (NEGATIVE) 05/24/18 14:15 Urine Ketones Negative (NEGATIVE) 05/24/18 14:15 Urine Blood 2+ (NEGATIVE) H 05/24/18 14:15 Urine Nitrite Negative (NEGATIVE) 05/24/18 14:15 Urine Bilirubin Negative (<2.0 mg/dL) 05/24/18 14:15 Urine Urobilinogen Negative mg/dL (0.2-1.0) 05/24/18 14:15 Ur Leukocyte Esterase Trace (NEGATIVE) 05/24/18 14:15 Urine WBC (Auto) 13 /hpf (3-5) 05/24/18 14:15 Urine RBC (Auto) 114 /hpf (0-3) 05/24/18 14:15 RPR Titer Nonreactive (NONREACTIVE) 05/24/18 07:00 lab noted Assessment: 05/27/18 09:56 mild withdrawal sx Plan: medically supervised detox
[2018-05-27] MEDS ORDERED: diazePAM 5 MG TABLET PO SCH (10:00)
[2018-05-27] MEDS: PARoxetine HCL 20 MG TABLET (FP) PO SCH (10:48)
[2018-05-27] MEDS: PRENATAL VITAMINS W/ FOLIC ACID TABLET (FP) PO SCH (10:48)
[2018-05-27] MEDS: AMMONIUM LACTATE 12% LOTION 225 GM BOTTLE TP SCH ×2 (10:49→22:29)
[2018-05-27] MEDS: THIAMINE HCL 100 MG TABLET (FP) PO SCH (22:28)
[2018-05-28] MEDS ORDERED: METHADONE HCL 10 MG TABLET ONE (04:14)
[2018-05-28] MEDS ORDERED: METHADONE HCL 40 MG DISPERSABLE TABLET ONE (04:14)
[2018-05-28] MEDS: METHADONE 120 MG, METHADONE 10 MG PO SCH (06:28)
--- NOTE | 2018-05-28 08:45 | DS ---
[facility] Detox Discharge Summary Admission Date: 05/23/18 Discharge Date: 05/28/18 - History Present History: Sedative Dependence Additional Comments: 67 years old male admitted on 05/23/18 for benzo withdrawal sx completed benzo detox regimen tolerated well denies benzo withdrawal sx alert oriented x 3 no acute distress aftercare [facility] - Physical Exam Results Vital Signs: Vital Signs Temperature 98.1 F 05/28/18 06:00 Pulse Rate 72 05/28/18 06:00 Respiratory Rate 16 05/28/18 06:00 Blood Pressure 137/76 05/28/18 06:00 O2 Sat by Pulse Oximetry (%) Pertinent Admission Physical Exam Findings: benzo withdrawal sx Vital Signs Temperature 98.2 F 05/28/18 09:22 Pulse Rate 76 05/28/18 09:22 Respiratory Rate 16 05/28/18 09:22 Blood Pressure 131/60 05/28/18 09:22 O2 Sat by Pulse Oximetry (%) Laboratory Last Values WBC 3.4 K/mm3 (4.0-10.0) L 05/24/18 07:00 RBC 4.56 M/mm3 (4.00-5.60) 05/24/18 07:00 Hgb 10.8 GM/dL (11.7-16.9) L 05/24/18 07:00 Hct 35.6 % (35.4-49) D 05/24/18 07:00 MCV 78.1 fl (80-96) L 05/24/18 07:00 MCH 23.7 pg (25.7-33.7) L 05/24/18 07:00 MCHC 30.3 g/dl (32.0-35.9) L 05/24/18 07:00 RDW 18.8 % (11.9-15.9) H 05/24/18 07:00 Plt Count 78 K/MM3 (134-434) L D 05/24/18 07:00 MPV 7.4 fl (7.5-11.1) L 05/24/18 07:00 Sodium 140 mmol/L (136-145) 05/24/18 07:00 Potassium 4.3 mmol/L (3.5-5.1) 05/24/18 07:00 Chloride 103 mmol/L (98-107) 05/24/18 07:00 Carbon Dioxide 29 mmol/L (21-32) 05/24/18 07:00 Anion Gap 8 MMOL/L (8-16) 05/24/18 07:00 BUN 13 mg/dL (7-18) 05/24/18 07:00 Creatinine 0.7 mg/dL (0.55-1.3) 05/24/18 07:00 Creat Clearance w eGFR > 60 (>60) 05/24/18 07:00 Random Glucose 73 mg/dL (74-106) L 05/24/18 07:00 Calcium 9.0 mg/dL (8.5-10.1) 05/24/18 07:00 Total Bilirubin 0.3 mg/dL (0.2-1) 05/24/18 07:00 AST 22 U/L (15-37) 05/24/18 07:00 ALT 20 U/L (13-61) 05/24/18 07:00 Alkaline Phosphatase 110 U/L (45-117) 05/24/18 07:00 Total Protein 8.4 g/dl (6.4-8.2) H 05/24/18 07:00 Albumin 3.7 g/dl (3.4-5.0) 05/24/18 07:00 Urine Color Yellow 05/24/18 14:15 Urine Appearance Clear 05/24/18 14:15 Urine pH 7.0 (5.0-8.0) D 05/24/18 14:15 Ur Specific [place] 1.016 (1.010-1.035) 05/24/18 14:15 Urine Protein Negative (NEGATIVE) 05/24/18 14:15 Urine Glucose (UA) Negative (NEGATIVE) 05/24/18 14:15 Urine Ketones Negative (NEGATIVE) 05/24/18 14:15 Urine Blood 2+ (NEGATIVE) H 05/24/18 14:15 Urine Nitrite Negative (NEGATIVE) 05/24/18 14:15 Urine Bilirubin Negative (<2.0 mg/dL) 05/24/18 14:15 Urine Urobilinogen Negative mg/dL (0.2-1.0) 05/24/18 14:15 Ur Leukocyte Esterase Trace (NEGATIVE) 05/24/18 14:15 Urine WBC (Auto) 13 /hpf (3-5) 05/24/18 14:15 Urine RBC (Auto) 114 /hpf (0-3) 05/24/18 14:15 RPR Titer Nonreactive (NONREACTIVE) 05/24/18 07:00 lab noted - Treatment Hospital Course: Detox Protocol Followed, Detoxed Safely, Responded well, Discharged Condition Good, Rehab Referral Accepted Patient has Accepted a Rehab Referral to: [facility] - Medication Discharge Medications: Ambulatory Orders Methadone [Dolophine -] 130 mg PO DAILY@0600 05/24/18 Paroxetine HCl [Paxil -] 20 mg PO DAILY #30 tablet 05/24/18 - Diagnosis (1) Sedative, hypnotic or anxiolytic dependence with withdrawal, uncomplicated Current Visit: Yes Status: Acute (2) Methadone maintenance therapy patient Current Visit: Yes Status: Chronic (3) Nicotine dependence Current Visit: Yes Status: Acute Qualifiers: Nicotine product type: cigarettes Substance use status: in withdrawal Qualified Code(s): F17.213 - Nicotine dependence, cigarettes, with withdrawal - AMA Did Patient Leave Against Medical Advice: No
[2018-05-28] MEDS: AMMONIUM LACTATE 12% LOTION 225 GM BOTTLE TP SCH (10:30)
[2018-05-28] MEDS: PARoxetine HCL 20 MG TABLET (FP) PO SCH (10:33)
[2018-05-28] MEDS: PRENATAL VITAMINS W/ FOLIC ACID TABLET (FP) PO SCH (10:33)
[2018-05-28 13:32] VITALS: BP 113/84; PULSE 82; TEMP 97.8
== END 2018-05-28 15:08 | disposition other institution (70) | DRG 897 ==
LOC: YASAS 13:37 → Y6N 17:31
PROC: HZ2ZZZZ Detoxification Services for Substance Abuse Treatment (ICD-10-PCS; principal; 2018-05-23)
DX: F13.230 Sedative, hypnotic or anxiolytic dependence with withdrawal, uncomplicated (principal); F11.20 Opioid dependence, uncomplicated; F19.280 Other psychoactive substance dependence with psychoactive substance-induced anxiety disorder; F17.213 Nicotine dependence, cigarettes, with withdrawal; F32.9 Major depressive disorder, single episode, unspecified; F19.24 Other psychoactive substance dependence with psychoactive substance-induced mood disorder; F43.10 Post-traumatic stress disorder, unspecified; R32 Unspecified urinary incontinence; R31.9 Hematuria, unspecified; D69.6 Thrombocytopenia, unspecified; D50.9 Iron deficiency anemia, unspecified
CPT/HCPCS: 36415; 80053; 81003; 81015; 85027; 86593; 93005; 93010

== ENCOUNTER 2018-05-28 15:29 | Inpatient (IN) | payer OTHER ==
--- NOTE | 2018-05-28 16:44 | HP ---
[facility] Rehab Assess/Revision - Admission History Admitted to Rehab from: [facility] Date of Admission to Rehab: 05/28/18 - Vital signs Vital Signs: Vital Signs Period Temp Pulse Resp BP Sys/[place] Pulse Ox Last 24 Hr 98.5 F 84 17 132/73 - Findings Detox History & Physical reviewed: Yes Concur with findings: Yes Inpatient Rehab Admission - Initial Determination Are CD services needed?: Yes Free of communicable disease: Yes Not in need of hospitalization: Yes - Rehab Admission Criteria Previous failed treatment: Yes Poor recovery environment: Yes Comorbidities: Yes Lacks judgement: Yes Patient is meeting Inpatient Rehab admission criteria:: Yes
[2018-05-28] MEDS ORDERED: MENTHOL/PHENOL 1 EACH UD MM PRN (16:45)
[2018-05-28] MEDS ORDERED: guaiFENesin/D-METHORPHAN HB 10 ML UNIT-DOSE CUPS PO PRN (16:45)
[2018-05-28] MEDS ORDERED: P-EPHED 60MG/TRIPROLIDI 2.5MG TABLET PO PRN (16:45)
[2018-05-28] MEDS ORDERED: LOPERAMIDE HCL 2 MG CAPSULE PO PRN (16:45)
[2018-05-28] MEDS ORDERED: ACETAMINOPHEN 325 MG TABLET (FP) PO PRN (16:45)
[2018-05-28] MEDS ORDERED: MAGNESIUM HYDROX 2400MG/30ML ORAL SUSPENSION 30 ML CUP PO PRN (16:45)
[2018-05-28] MEDS ORDERED: MAGNESIUM CITRATE 300 ML BOTTLE PO PRN (16:45)
[2018-05-28] MEDS ORDERED: MAG HYDROX/AL HYDROX/SIMETH 30 ML UNIT-DOSE CUP PO PRN (16:45)
--- NOTE | 2018-05-28 17:08 | HP ---
Psychiatrist Admission - Data Date of interview: 05/28/18 Admission source: [address] [place] [address] detox Identifying data: This is the first admission to [address] [place] [address] for this H father of 2 children,resides in supportive Housing ,on [facility]. Medical History: HTN,arthritis. Vital Signs: Vital Signs - 24 hr 05/28/18 16:00 Temperature 98.5 F Pulse Rate 84 Respiratory 17 Rate Blood Pressure 132/73 Allergies/Adverse Reactions: Allergies Allergy/AdvReac Type Severity Reaction Status Date / Time No Known Allergies Allergy Verified 05/23/18 15:38 Concur with the findings of this exam: Yes - Substance Abuse/Tx History Hx Alcohol Use: Yes Hx Substance Use: Yes Substance Use Type: Alcohol, Cocaine, Heroin Hx Substance Use Treatment: Yes (this is his first inpatient rehabtreatment) Mental Status Exam - Mental Status Exam Alert and Oriented to: Time, Place, Person Cognitive Function: Grossly Intact Patient Appearance: Unkempt Mood: Sad Affect: Mood Congruent, Labile Patient Behavior: Cooperative Speech Pattern: Clear Voice Loudness: Normal Thought Process: Goal Oriented Thought Disorder: Not Present Hallucinations: Denies Suicidal Ideation: Denies Homicidal Ideation: Denies Insight/Judgement: Fair Sleep: Fair Appetite: Fair Muscle strength/Tone: Normal Gait/Station: Normal Psychiatric Findings - Problem List ([place] 1, 2,3) (1) Nicotine dependence Current Visit: Yes Status: Chronic Qualifiers: (2) Opioid dependence on agonist therapy Current Visit: Yes Status: Chronic (3) Sedative, hypnotic or anxiolytic dependence with withdrawal, uncomplicated Current Visit: Yes Status: Chronic (4) Substance induced mood disorder Current Visit: Yes Status: Chronic - Initial Treatment Plan Initial Treatment Plan: Paxil 20 mg po daily.
[2018-05-28] MEDS: THIAMINE HCL 100 MG TABLET (FP) PO SCH (21:13)
[2018-05-28] MEDS: MELATONIN 5 MG TABLETS PO PRN (21:14)
[2018-05-28] MEDS: hydrOXYzine PAMOATE 50 MG CAPSULE (FP) PO PRN (21:14)
[2018-05-29] MEDS ORDERED: METHADONE HCL 10 MG TABLET PO SCH (07:00)
[2018-05-29] MEDS ORDERED: METHADONE 120 MG, METHADONE 10 MG PO SCH (07:15)
[2018-05-29] MEDS ORDERED: METHADONE HCL 10 MG TABLET ONE (07:26)
[2018-05-29] MEDS ORDERED: METHADONE HCL 40 MG DISPERSABLE TABLET ONE (07:26)
[2018-05-29] MEDS: METHADONE 120 MG, METHADONE 10 MG PO SCH (07:40)
[2018-05-29] MEDS: PRENATAL VITAMINS W/ FOLIC ACID TABLET (FP) PO SCH (09:46)
[2018-05-29] MEDS: PARoxetine HCL 20 MG TABLET (FP) PO SCH (09:46)
[2018-05-29] MEDS: NICOTINE 14 MG/24 HOURS TOPICAL PATCH TD SCH (09:47)
[2018-05-29] MEDS: hydrOXYzine PAMOATE 50 MG CAPSULE (FP) PO PRN (21:15)
[2018-05-29] MEDS: MELATONIN 5 MG TABLETS PO PRN (21:15)
[2018-05-29] MEDS: THIAMINE HCL 100 MG TABLET (FP) PO SCH (21:15)
[2018-05-29] MEDS: IBUPROFEN 400 MG TABLET (FP) PO PRN (21:17)
[2018-05-30] MEDS ORDERED: METHADONE HCL 10 MG TABLET ONE (03:29)
[2018-05-30] MEDS ORDERED: METHADONE HCL 40 MG DISPERSABLE TABLET ONE (03:29)
[2018-05-30] MEDS: METHADONE 120 MG, METHADONE 10 MG PO SCH (06:28)
[2018-05-30] MEDS: PRENATAL VITAMINS W/ FOLIC ACID TABLET (FP) PO SCH (09:42)
[2018-05-30] MEDS: PARoxetine HCL 20 MG TABLET (FP) PO SCH (09:42)
[2018-05-30] MEDS: NICOTINE 14 MG/24 HOURS TOPICAL PATCH TD SCH (09:43)
[2018-05-30] MEDS: THIAMINE HCL 100 MG TABLET (FP) PO SCH (21:11)
[2018-05-30] MEDS: MELATONIN 5 MG TABLETS PO PRN (21:11)
[2018-05-30] MEDS: IBUPROFEN 400 MG TABLET (FP) PO PRN (21:12)
[2018-05-30] MEDS: hydrOXYzine PAMOATE 50 MG CAPSULE (FP) PO PRN (21:12)
[2018-05-31] MEDS ORDERED: METHADONE HCL 10 MG TABLET ONE (03:59)
[2018-05-31] MEDS ORDERED: METHADONE HCL 40 MG DISPERSABLE TABLET ONE (03:59)
[2018-05-31] MEDS: METHADONE 120 MG, METHADONE 10 MG PO SCH (06:23)
[2018-05-31] MEDS: NICOTINE 14 MG/24 HOURS TOPICAL PATCH TD SCH (09:49)
[2018-05-31] MEDS: PARoxetine HCL 20 MG TABLET (FP) PO SCH (09:49)
[2018-05-31] MEDS: PRENATAL VITAMINS W/ FOLIC ACID TABLET (FP) PO SCH (09:49)
[2018-05-31] MEDS: THIAMINE HCL 100 MG TABLET (FP) PO SCH (21:08)
[2018-05-31] MEDS: MELATONIN 5 MG TABLETS PO PRN (21:09)
[2018-05-31] MEDS: IBUPROFEN 400 MG TABLET (FP) PO PRN (21:09)
[2018-05-31] MEDS: hydrOXYzine PAMOATE 50 MG CAPSULE (FP) PO PRN (21:09)
[2018-06-01] MEDS ORDERED: METHADONE HCL 40 MG DISPERSABLE TABLET ONE (03:33)
[2018-06-01] MEDS ORDERED: METHADONE HCL 10 MG TABLET ONE (03:33)
[2018-06-01] MEDS: METHADONE 120 MG, METHADONE 10 MG PO SCH (06:27)
[2018-06-01] MEDS: PARoxetine HCL 20 MG TABLET (FP) PO SCH (09:32)
[2018-06-01] MEDS: NICOTINE 14 MG/24 HOURS TOPICAL PATCH TD SCH (09:32)
[2018-06-01] MEDS: PRENATAL VITAMINS W/ FOLIC ACID TABLET (FP) PO SCH (09:32)
[2018-06-01] MEDS: MELATONIN 5 MG TABLETS PO PRN (21:12)
[2018-06-01] MEDS: THIAMINE HCL 100 MG TABLET (FP) PO SCH (21:12)
[2018-06-02] MEDS ORDERED: METHADONE HCL 40 MG DISPERSABLE TABLET ONE (04:20)
[2018-06-02] MEDS ORDERED: METHADONE HCL 10 MG TABLET ONE (04:20)
[2018-06-02] MEDS: METHADONE 120 MG, METHADONE 10 MG PO SCH (06:25)
[2018-06-02] MEDS: PARoxetine HCL 20 MG TABLET (FP) PO SCH (09:48)
[2018-06-02] MEDS: PRENATAL VITAMINS W/ FOLIC ACID TABLET (FP) PO SCH (09:48)
[2018-06-02] MEDS: NICOTINE 14 MG/24 HOURS TOPICAL PATCH TD SCH (09:48)
[2018-06-02] MEDS: THIAMINE HCL 100 MG TABLET (FP) PO SCH (21:13)
[2018-06-02] MEDS: MELATONIN 5 MG TABLETS PO PRN (21:14)
[2018-06-02] MEDS: hydrOXYzine PAMOATE 50 MG CAPSULE (FP) PO PRN (21:14)
[2018-06-03] MEDS ORDERED: METHADONE HCL 10 MG TABLET ONE (02:18)
[2018-06-03] MEDS ORDERED: METHADONE HCL 40 MG DISPERSABLE TABLET ONE (02:18)
[2018-06-03] MEDS: METHADONE 120 MG, METHADONE 10 MG PO SCH (06:34)
[2018-06-03] MEDS: PARoxetine HCL 20 MG TABLET (FP) PO SCH (09:39)
[2018-06-03] MEDS: PRENATAL VITAMINS W/ FOLIC ACID TABLET (FP) PO SCH (09:39)
[2018-06-03] MEDS: NICOTINE 14 MG/24 HOURS TOPICAL PATCH TD SCH (09:39)
[2018-06-03] MEDS: THIAMINE HCL 100 MG TABLET (FP) PO SCH (21:12)
[2018-06-03] MEDS: hydrOXYzine PAMOATE 50 MG CAPSULE (FP) PO PRN (21:13)
[2018-06-03] MEDS: MELATONIN 5 MG TABLETS PO PRN (21:13)
[2018-06-04] MEDS ORDERED: METHADONE HCL 10 MG TABLET ONE (04:16)
[2018-06-04] MEDS ORDERED: METHADONE HCL 40 MG DISPERSABLE TABLET ONE (04:16)
[2018-06-04] MEDS: METHADONE 120 MG, METHADONE 10 MG PO SCH (06:08)
[2018-06-04] MEDS: NICOTINE 14 MG/24 HOURS TOPICAL PATCH TD SCH (09:44)
[2018-06-04] MEDS: PARoxetine HCL 20 MG TABLET (FP) PO SCH (09:44)
[2018-06-04] MEDS: PRENATAL VITAMINS W/ FOLIC ACID TABLET (FP) PO SCH (09:45)
[2018-06-04] MEDS: hydrOXYzine PAMOATE 50 MG CAPSULE (FP) PO PRN ×2 (09:52→21:01)
[2018-06-04] MEDS: THIAMINE HCL 100 MG TABLET (FP) PO SCH (21:02)
[2018-06-04] MEDS: MELATONIN 5 MG TABLETS PO PRN (21:02)
[2018-06-05] MEDS ORDERED: METHADONE HCL 10 MG TABLET ONE (04:05)
[2018-06-05] MEDS ORDERED: METHADONE HCL 40 MG DISPERSABLE TABLET ONE (04:06)
[2018-06-05] MEDS ORDERED: METHADONE HCL 10 MG TABLET PO SCH (06:00)
[2018-06-05] MEDS: METHADONE 120 MG, METHADONE 10 MG PO SCH ×2 (06:45→06:49)
[2018-06-05] MEDS: NICOTINE 14 MG/24 HOURS TOPICAL PATCH TD SCH (09:42)
[2018-06-05] MEDS: PARoxetine HCL 20 MG TABLET (FP) PO SCH (09:42)
[2018-06-05] MEDS: PRENATAL VITAMINS W/ FOLIC ACID TABLET (FP) PO SCH (09:42)
[2018-06-05] MEDS: THIAMINE HCL 100 MG TABLET (FP) PO SCH (21:11)
[2018-06-05] MEDS: MELATONIN 5 MG TABLETS PO PRN (21:11)
[2018-06-05] MEDS: hydrOXYzine PAMOATE 50 MG CAPSULE (FP) PO PRN (21:12)
[2018-06-06] MEDS ORDERED: METHADONE HCL 10 MG TABLET ONE (05:40)
[2018-06-06] MEDS ORDERED: METHADONE HCL 40 MG DISPERSABLE TABLET ONE (05:40)
[2018-06-06] MEDS: METHADONE 120 MG, METHADONE 10 MG PO SCH (06:42)
[2018-06-06] MEDS: NICOTINE 14 MG/24 HOURS TOPICAL PATCH TD SCH (10:00)
[2018-06-06] MEDS: PARoxetine HCL 20 MG TABLET (FP) PO SCH (10:00)
[2018-06-06] MEDS: PRENATAL VITAMINS W/ FOLIC ACID TABLET (FP) PO SCH (10:00)
[2018-06-06] MEDS: hydrOXYzine PAMOATE 50 MG CAPSULE (FP) PO PRN ×2 (10:03→21:17)
[2018-06-06] MEDS: THIAMINE HCL 100 MG TABLET (FP) PO SCH (21:16)
[2018-06-06] MEDS: MELATONIN 5 MG TABLETS PO PRN (21:17)
[2018-06-07] MEDS ORDERED: METHADONE HCL 40 MG DISPERSABLE TABLET ONE (04:07)
[2018-06-07] MEDS ORDERED: METHADONE HCL 10 MG TABLET ONE (04:07)
[2018-06-07] MEDS: METHADONE 120 MG, METHADONE 10 MG PO SCH (06:22)
[2018-06-07] MEDS: PARoxetine HCL 20 MG TABLET (FP) PO SCH (09:54)
[2018-06-07] MEDS: NICOTINE 14 MG/24 HOURS TOPICAL PATCH TD SCH (09:54)
[2018-06-07] MEDS: hydrOXYzine PAMOATE 50 MG CAPSULE (FP) PO PRN ×2 (09:55→21:09)
[2018-06-07] MEDS: PRENATAL VITAMINS W/ FOLIC ACID TABLET (FP) PO SCH (09:56)
[2018-06-07] MEDS: MELATONIN 5 MG TABLETS PO PRN (21:09)
[2018-06-07] MEDS: THIAMINE HCL 100 MG TABLET (FP) PO SCH (21:09)
[2018-06-08] MEDS ORDERED: METHADONE HCL 10 MG TABLET ONE (05:44)
[2018-06-08] MEDS ORDERED: METHADONE HCL 40 MG DISPERSABLE TABLET ONE (05:44)
[2018-06-08] MEDS: METHADONE 120 MG, METHADONE 10 MG PO SCH (06:15)
[2018-06-08] MEDS: PARoxetine HCL 20 MG TABLET (FP) PO SCH (09:54)
[2018-06-08] MEDS: NICOTINE 14 MG/24 HOURS TOPICAL PATCH TD SCH (09:54)
[2018-06-08] MEDS: PRENATAL VITAMINS W/ FOLIC ACID TABLET (FP) PO SCH (09:55)
[2018-06-08] MEDS: hydrOXYzine PAMOATE 50 MG CAPSULE (FP) PO PRN (21:17)
[2018-06-08] MEDS: THIAMINE HCL 100 MG TABLET (FP) PO SCH (21:17)
[2018-06-08] MEDS: MELATONIN 5 MG TABLETS PO PRN (21:18)
[2018-06-09] MEDS ORDERED: METHADONE HCL 10 MG TABLET ONE (03:57)
[2018-06-09] MEDS ORDERED: METHADONE HCL 40 MG DISPERSABLE TABLET ONE (03:58)
[2018-06-09] MEDS: METHADONE 120 MG, METHADONE 10 MG PO SCH (06:34)
[2018-06-09] MEDS: PRENATAL VITAMINS W/ FOLIC ACID TABLET (FP) PO SCH (09:55)
[2018-06-09] MEDS: NICOTINE 14 MG/24 HOURS TOPICAL PATCH TD SCH (09:55)
[2018-06-09] MEDS: PARoxetine HCL 20 MG TABLET (FP) PO SCH (09:55)
[2018-06-09] MEDS: hydrOXYzine PAMOATE 50 MG CAPSULE (FP) PO PRN ×2 (14:19→21:14)
[2018-06-09] MEDS: THIAMINE HCL 100 MG TABLET (FP) PO SCH (21:13)
[2018-06-09] MEDS: IBUPROFEN 400 MG TABLET (FP) PO PRN (21:42)
[2018-06-10] MEDS ORDERED: METHADONE HCL 10 MG TABLET ONE (03:59)
[2018-06-10] MEDS ORDERED: METHADONE HCL 40 MG DISPERSABLE TABLET ONE (03:59)
[2018-06-10] MEDS: METHADONE 120 MG, METHADONE 10 MG PO SCH (06:46)
[2018-06-10] MEDS: IBUPROFEN 400 MG TABLET (FP) PO PRN ×2 (09:31→22:24)
[2018-06-10] MEDS: NICOTINE 14 MG/24 HOURS TOPICAL PATCH TD SCH (09:31)
[2018-06-10] MEDS: PARoxetine HCL 20 MG TABLET (FP) PO SCH (09:31)
[2018-06-10] MEDS: hydrOXYzine PAMOATE 50 MG CAPSULE (FP) PO PRN ×2 (09:31→14:35)
[2018-06-10] MEDS: PRENATAL VITAMINS W/ FOLIC ACID TABLET (FP) PO SCH (09:31)
[2018-06-10] MEDS: THIAMINE HCL 100 MG TABLET (FP) PO SCH (21:23)
[2018-06-11] MEDS ORDERED: METHADONE HCL 10 MG TABLET ONE (03:21)
[2018-06-11] MEDS ORDERED: METHADONE HCL 40 MG DISPERSABLE TABLET ONE (03:22)
[2018-06-11] MEDS ORDERED: METHADONE HCL 10 MG TABLET PO SCH (06:00)
[2018-06-11] MEDS: METHADONE 120 MG, METHADONE 10 MG PO SCH ×2 (06:23→06:33)
[2018-06-11] MEDS: PARoxetine HCL 20 MG TABLET (FP) PO SCH (10:11)
[2018-06-11] MEDS: PRENATAL VITAMINS W/ FOLIC ACID TABLET (FP) PO SCH (10:11)
[2018-06-11] MEDS: NICOTINE 14 MG/24 HOURS TOPICAL PATCH TD SCH (10:12)
[2018-06-11] MEDS: THIAMINE HCL 100 MG TABLET (FP) PO SCH (21:56)
[2018-06-11] MEDS: IBUPROFEN 400 MG TABLET (FP) PO PRN (21:57)
[2018-06-12] MEDS ORDERED: METHADONE HCL 40 MG DISPERSABLE TABLET ONE (04:11)
[2018-06-12] MEDS ORDERED: METHADONE HCL 10 MG TABLET ONE (04:11)
[2018-06-12] MEDS: METHADONE 120 MG, METHADONE 10 MG PO SCH (06:38)
[2018-06-12] MEDS: PARoxetine HCL 20 MG TABLET (FP) PO SCH (10:27)
[2018-06-12] MEDS: PRENATAL VITAMINS W/ FOLIC ACID TABLET (FP) PO SCH (10:27)
[2018-06-12] MEDS: NICOTINE 14 MG/24 HOURS TOPICAL PATCH TD SCH (10:28)
--- NOTE | 2018-06-12 12:51 | CONSULT ---
S Psychiatric Consult - Data Date of interview: 06/12/18 Admission source: Discharge Note Identifying data: Patient addressing Sedative Dependence comorbid with Opioid Dependence on Agonist Therapy, Nicotine Dependence and Substance-Induced Mood Disorder
--- NOTE | 2018-06-12 12:57 | PN ---
Psychiatric Progress Note Vital Signs: Vital Signs Period Temp Pulse Resp BP Sys/[place] Pulse Ox Last 24 Hr 98.7 F 82 16-18 154/82 Date of Session: 06/12/18 Chief Complaint:: Discharge Note HPI: Patient addressing Sedative Dependence comorbid with Opioid Dependence on Agonist Therapy, Nicotine Dependence and Substance-Induced Mood Disorder ROS: Anemia, Hep C treated were medically managed Current Medications: Active Medications Generic Name Dose Route Start Last Admin Trade Name Freq PRN Reason Stop Dose Admin Acetaminophen 650 mg 05/28/18 16:45 Tylenol - PO Q4H PRN FEVER Al Hydroxide/Mg Hydroxide 30 ml 05/28/18 16:45 Mylanta Oral Suspension - PO Q6H PRN DYSPEPSIA Eucalyptus/Menthol/Phenol/Sorbitol 1 each 05/28/18 16:45 Cepastat Lozenge - MM Q4H PRN SORE THROAT Guaifenesin 10 ml 05/28/18 16:45 Robitussin Dm - PO Q6H PRN COUGH Hydroxyzine Pamoate 50 mg 05/28/18 16:45 06/10/18 14:35 Vistaril - PO 50 mg Q4H PRN Administration AGITATION Ibuprofen 400 mg 05/28/18 16:45 06/11/18 21:57 Motrin - PO 400 mg Q6H PRN Administration Pain Level 4-6 Loperamide HCl 4 mg 05/28/18 16:45 Imodium - PO Q6H PRN DIARRHEA Magnesium Citrate 300 ml 05/28/18 16:45 Citroma - PO Q48H PRN CONSTIPATION Magnesium Hydroxide 30 ml 05/28/18 16:45 05/30/18 09:45 Milk Of Magnesia - PO 30 ml DAILY PRN Administration CONSTIPATION Melatonin 5 mg 05/28/18 22:00 06/08/18 21:18 Melatonin PO 5 mg HS PRN Administration INSOMNIA Methadone HCl 120 mg/ 130 mg 06/11/18 06:00 06/12/18 06:38 Methadone HCl 10 mg PO 06/18/18 05:59 130 mg DAILY@0600 DAVID Administration Nicotine 14 mg 05/29/18 10:00 06/12/18 10:28 Nicoderm Patch - TD 14 mg DAILY DAVID Administration Paroxetine HCl 20 mg 05/29/18 10:00 06/12/18 10:27 Paxil - PO 20 mg DAILY DAVID Administration Multivit/Folic Acid/Iron 1 tab 05/29/18 10:00 06/12/18 10:27 Vitamins (Sjr) - PO 1 tab DAILY DAVID Administration Pseudoephedrine/Triprolidine 1 combo 05/28/18 16:45 Actifed - PO TID PRN NASAL CONGESTION Thiamine HCl 100 mg 05/28/18 22:00 06/11/18 21:56 Vitamin B1 - PO 100 mg HS DAVID Administration Current Side Effect: No Lab tests ordered: Yes Lab tests reviewed: Yes Provider note:: Patient will complete this program on 06/13/18. He has met his treatment goals and will continue to address his issues in outpatient program at [facility] at [address] [place] [address]. Told securities underwriter that from his participation in this program, he has learned to take responsibility for his actions. He responded well to Paxil 20 mg po daily. Script for that medication will be electronically transmitted to [facility] at [address] [place] [address]. He is stable for discharge on 06/13/18 Total face to face time:: 35 Mental Status Exam - Mental Status Exam Alert and Oriented to: Time, Place, Person Cognitive Function: Fair Mood: Hopeful, Euthymic Affect: Appropriate Patient Behavior: Cooperative Speech Pattern: Clear Voice Loudness: Normal Thought Process: Intact, Goal Oriented Thought Disorder: Not Present Hallucinations: Denies Suicidal Ideation: Denies Homicidal Ideation: Denies Insight/Judgement: Fair Sleep: Fair Appetite: Good Muscle strength/Tone: Normal Gait/Station: Normal Psychiatric Treatment Plan - Problem List (1) Sedative hypnotic or anxiolytic dependence Current Visit: Yes (2) Opioid dependence on agonist therapy Current Visit: Yes (3) Nicotine dependence Current Visit: Yes Qualifiers: (4) Substance induced mood disorder Current Visit: Yes (5) History of gastric ulcer Current Visit: No (6) Anemia Current Visit: Yes (7) Hepatitis C Current Visit: Yes Initial treatment plan: Patient will be discharged tomorrow and referred to [facility] for outpatient treatment
[2018-06-12] MEDS: hydrOXYzine PAMOATE 50 MG CAPSULE (FP) PO PRN (21:54)
[2018-06-12] MEDS: MELATONIN 5 MG TABLETS PO PRN (21:54)
[2018-06-12] MEDS: THIAMINE HCL 100 MG TABLET (FP) PO SCH (21:54)
[2018-06-12] MEDS: IBUPROFEN 400 MG TABLET (FP) PO PRN (21:55)
[2018-06-13] MEDS ORDERED: METHADONE HCL 10 MG TABLET ONE (04:05)
[2018-06-13] MEDS ORDERED: METHADONE HCL 40 MG DISPERSABLE TABLET ONE (04:05)
[2018-06-13] MEDS: METHADONE 120 MG, METHADONE 10 MG PO SCH (06:25)
[2018-06-13 07:05] VITALS: BP 151/72; PULSE 85; TEMP 97.4
[2018-06-13] MEDS: PRENATAL VITAMINS W/ FOLIC ACID TABLET (FP) PO SCH (10:07)
[2018-06-13] MEDS: PARoxetine HCL 20 MG TABLET (FP) PO SCH (10:07)
[2018-06-13] MEDS: NICOTINE 14 MG/24 HOURS TOPICAL PATCH TD SCH (10:09)
== END 2018-06-13 11:00 | disposition other institution (70) | DRG 897 ==
LOC: YASAS 15:29 → Y5N 15:33
PROVIDERS: ADMIT Psychiatry & Neurology Psychiatry; ATTEND Psychiatry & Neurology Psychiatry
PROC: HZ2ZZZZ Detoxification Services for Substance Abuse Treatment (ICD-10-PCS; principal; 2018-05-28)
DX: F13.230 Sedative, hypnotic or anxiolytic dependence with withdrawal, uncomplicated (principal); F11.20 Opioid dependence, uncomplicated; F17.210 Nicotine dependence, cigarettes, uncomplicated; F19.24 Other psychoactive substance dependence with psychoactive substance-induced mood disorder; D64.9 Anemia, unspecified; B18.2 Chronic viral hepatitis C; I10 Essential (primary) hypertension; M12.9 Arthropathy, unspecified; Z87.19 Personal history of other diseases of the digestive system